=== PATIENT | male | born 1975 | race Caucasian/White ===

== ENCOUNTER 2022-10-04 15:43 | Inpatient (IN) | payer OTHER ==
[~2022-10-04] VITALS: Ht 188 cm; Wt 74.8 kg
[~2022-10-04 15:43] MED LIST: ACET-2619 PO; ACET-5629 PO; APIX5TAB PO; CLOZ100T PO; DIVA125E11 PO; DOCU50LI8 GT; DOXY-690 PO; IBUP-2213 PO; LACT-103 PO; LID5T TP; PANT40EC PO; PAX10 PO; POLY17PD65 PO
[2022-10-04 20:10] VITALS: PULSE 55
--- NOTE | 2022-10-04 20:10 | NUR ---
PT WAS DIRECT ADMITTED FROM [facility] WITH DIAGNOSIS OF ESOPHAGEAL PERFURATION. PT IS AOX2-3, BEDREST, ABLE TO VERBALIZE NEEDS AND ABLE TO FOLLOW COMMANDS. PT IS IN TPN AND ON 4L NC. PT HAS G-TUBE AND HAS IV ON RIGHT UPPER ARM 3X LUMEN, SALINE LOCK AND RIGHT HAND GAUGE 20, SALINE LOCK. PT HAS WOUND ON LEFT LOWER LEG AND ULCER ON SACRAL. PT WAS ORIENTED TO ROOM/HOSPITAL, BEDBUTTONS AND CALL LIGHT. ALL SAFETY MEASURES IMPLEMENTED, BED IN LOW POSITION, BED WHEELS ON LOCK AND CALL LIGHT WITHIN REACH.
--- NOTE | 2022-10-04 21:00 | NUR ---
PAGED DR. CAT REGARDING DIRECT ADMIT PT. WILL WAIT FOR DOCTOR'S CALL AND ORDER.
--- NOTE | 2022-10-04 22:36 | NUR ---
Texted Dr Choudhary for admission order because [facility] charge has not received the call back from Dr Choudhary for the admission order
--- NOTE | 2022-10-04 23:00 | NUR ---
RECEIVED CALL FROM DR. CAT. DOCTOR ORDER TO CONTINUE ALL THE MEDICATION EXCEPT CHLORHEXIDINE AND HE ORDER D5NS AT 50ML/HR DUE TO NO AVAILABILITY OF TPN. ALL SAFETY MEASURES IMPLEMENTED, BED IN LOW POSITION, BED WHEELS ON LOCK AND CALL LIGHT WITHIN REACH.
[2022-10-04] MEDS ORDERED: MAG SULF 2000 MG/WATER PREMIX 50 ML IV PRN (23:10)
[2022-10-04] MEDS ORDERED: KCL 20 MEQ IN 100 mL PREMIX 200 ML IV PRN (23:10)
[2022-10-04] MEDS: DEXT 5% /NACL 0.9% 1,000 ML IV SCH (23:58)
[2022-10-04] MEDS: ONDANSETRON 4 MG/2 ML VIAL IVP PRN (23:59)
[2022-10-04] MEDS: MORPHINE SULFATE 4 MG/ML SYR IVP PRN (23:59)
[2022-10-05] VITALS (12 sets, daily range): BP systolic 114–133; BP diastolic 60–78; PULSE 48–69; RESP 18; TEMP 98–98.2; O2SAT 98–100
[2022-10-05] MEDS ORDERED: ACETAMINOPHEN 100 ML IV PRN (00:15)
[2022-10-05] MEDS ORDERED: phenoL 1.4% SPRAY 20 ML BTL MM PRN (00:15)
[2022-10-05] MEDS ORDERED: LIDOCAINE 5% 1 EA PATCH TP SCH (00:15)
[2022-10-05] MEDS ORDERED: METOCLOPRAMIDE 10 MG/2 ML INJ VIAL IVP PRN (00:15)
[2022-10-05] MEDS ORDERED: oxyCODONE 5 MG TAB PO PRN (00:15)
[2022-10-05] MEDS ORDERED: DEXTROSE 50% 50 ML SYR IVP PRN (00:15)
[2022-10-05] MEDS ORDERED: GLUCAGON 1 MG VIAL IM PRN (00:15)
[2022-10-05] MEDS ORDERED: METOCLOPRAMIDE 10 MG TAB GT PRN (00:15)
--- NOTE | 2022-10-05 02:00 | NUR ---
PT IS ON SLEEP. CHEST RISE AND FALL SYMMETRICALLY NOTED. RESPIRATION IS EVEN AND UNLABORED. ALL SAFETY MEASURES IMPLEMENTED, BED IN LOW POSITION, BED WHEELS ON LOCK AND CALL LIGHT WITHIN REACH.
--- NOTE | 2022-10-05 04:00 | NUR ---
MORNING CARE WAS DONE TO PT. CHANGED CHUCKS, GOWN, LINENS AND BLANKET. ALL SAFETY MEASURES IMPLEMENTED, BED IN LOW POSITION, BED WHEELS ON LOCK AND CALL LIGHT WITHIN REACH.
[2022-10-05 07:29] LABS: BASOPHILS # (AUTO) 0.1 K/uL (0.00-0.22); BASOPHILS % (AUTO) 1.6 % (0.0-2.0); EOSINOPHILS # (AUTO) 0.4 K/uL (0-0.4); EOSINOPHILS % (AUTO) 5.2 % (0.0-4.0); HEMATOCRIT 27.8 % (36-52); LYMPHOCYTES # (AUTO) 1.3 K/uL (2.0-11.5); LYMPHOCYTES % (AUTO) 17.6 % (20.5-51.1); MEAN CORPUSCULAR HEMOGLOBIN 27 pg (27-31); MEAN CORPUSCULAR HGB CONC 33 g/dL (33-37); MEAN CORPUSCULAR VOLUME 82.6 fL (80-94); MONOCYTES # (AUTO) 0.9 K/uL (0.8-1.0); MONOCYTES % (AUTO) 12.3 % (1.7-9.3); NEUTROPHILS # (AUTO) 4.6 K/uL (1.8-7.7); NEUTROPHILS % (AUTO) 63.3 % (42.2-75.2); RED BLOOD CELL COUNT(AUTO) 3.36 MIL/uL (4.20-6.10); RED CELL DISTRIBUTION WIDTH 17.3 % (11.6-13.7); WHITE BLOOD COUNT (AUTO) 7.2 K/uL (4.8-10.8)
--- NOTE | 2022-10-05 07:35 | NUR ---
RECEIVED PT FROM HOSPITAL FELLOW FOR CONTINUITY OF CARE. ALERT AND ORIENTED X3. RESP. EVEN AND UNLABORED. ON CONTINUOUS O2 @ 4L/NC. G-TUBE INTACT. IVF INFUSING WELL. NO C/O PAIN OR DISCOMFORT. CALL LIGHT KEPT WITHIN REACH. WILL CONTINUE TO MONITOR.
--- NOTE | 2022-10-05 07:40 | NUR ---
PT IS STABLE. ENDORSED PT TO MORNING SHIFT NURSE FOR CONTINUITY OF CARE.
[2022-10-05 07:45] LABS: ANION GAP 6.3 (8-16); CARBON DIOXIDE 32.3 mmol/L (21-32); CREATININE 0.6 mg/dL (0.6-1.3); POTASSIUM 3.6 mmol/L (3.5-5.1)
--- NOTE | 2022-10-05 07:52 | NUR ---
ROUNDED ON PT AND FOUND HE IS ON 4L NC TALKED TO NOC RN SHE STATED PT CAME IN ON 4L NC. I TOLD HER 4L NC WAS NOT INDICATED AND I TITRATED TO 2L NC. DAY SHIFT RN SHANTA IS AWARE OF CHANGES. HIS SATURATION IS 99% ON 2L NC. WILL CONTINUE TO MONITOR. PT SHOWS NO SIGNS OF RESP DISTRESS. CALL LIGHT IS WITH IN REACH.
[2022-10-05 08:07] LABS: PLATELET COUNT (AUTO) 541 K/uL (140-450)
[2022-10-05] MEDS ORDERED: MUPIROCIN 2% OINT 22 GM TUBE TP SCH (09:00)
[2022-10-05] MEDS ORDERED: ENOXAPARIN 80 MG/0.8 ML SYR SUBQ SCH ×2 (09:00→21:00)
[2022-10-05] MEDS: SUCRALFATE 1 GM TAB GT SCH ×4 (11:01→20:42)
[2022-10-05] MEDS: HALOPERIDOL 5 MG TAB GT SCH ×2 (11:01→18:08)
[2022-10-05] MEDS: FINASTERIDE 5 MG TAB GT SCH (11:01)
--- NOTE | 2022-10-05 11:01 | NUR ---
RESIDUAL CHECKED. NO RESIDUAL NOTED. SCHEDULED MEDICATIONS GIVEN VIA G-TUBE. TOLERATED WELL.
[2022-10-05] MEDS: PANTOPRAZOLE 40 MG INJ VIAL IVP SCH ×2 (11:04→20:44)
[2022-10-05] MEDS: THIAMINE 200 MG/2 ML VIAL IV SCH ×2 (11:05→20:43)
[2022-10-05] MEDS: MICAFUNGIN SODIUM 100 MG in NACL 0.9% 100 ML IV SCH (11:06)
[2022-10-05] MEDS: MORPHINE SULFATE 4 MG/ML SYR IVP PRN ×2 (11:19→19:11)
[2022-10-05] MEDS: DEXT 5% /NACL 0.9% 1,000 ML IV SCH (11:40)
[2022-10-05 12:10] LABS: ALBUMIN 1.8 g/dL (3.4-5.0); BILIRUBIN,DIRECT 0.1 mg/dL (0.0-0.3); MAGNESIUM 2.1 mg/dL (1.8-2.4); PHOSPHORUS 3.7 mg/dL (2.5-4.9); TOTAL BILIRUBIN 0.2 mg/dL (0.0-1.0)
[2022-10-05] MEDS: ALBUTEROL 0.083% 2.5 MG/3 ML NEBU INH SCH ×2 (13:00→19:00)
--- NOTE | 2022-10-05 13:33 | NUR ---
INFORMED BY LUCY GASTON, THAT OXYGEN WAS INCREASED TO 3L/NC. PT SATTING 91% ON 2L/NC. DR. CAT NOTIFIED, NO NEW ORDER.
[2022-10-05] MEDS ORDERED: INSULIN LISPRO SLIDING SCALE 100 UNITS/ML VIAL SUBQ PRN (14:40)
--- NOTE | 2022-10-05 14:48 | NUR ---
RECEIVED CALLED FROM PHARMACY SPOKE TO MEDIA, CLARIFIED ORDERS REGARDING PHENOL SPRAY AND PRN OXYCODONE. PER DR. CAT KEEP ORDERS.
--- NOTE | 2022-10-05 15:57 | NUR ---
PT WAS SEEN FOR DYSPHAGIA. PT WAS ABLE TO SAFELY SWALLOW PUREE DIET WITH NECTAR THICK LIQUID. MILD COUGH FOR THIN LIQUID. RECOMMENDATION PUREE DIET WITH NECTAR THICK LIQUID
--- NOTE | 2022-10-05 16:22 | NUR ---
SEEN BY ST, RECOMMENDS PUREE DIET, NECTAR THICK LIQUID. DR. CAT NOTIFIED AND STATED KEEP PT NPO.
[2022-10-05] MEDS: BLOOD GLUCOSE MONITORING 1 DEV DEV MC SCH (18:07)
--- NOTE | 2022-10-05 18:07 | NUR ---
BS CHECKED 80. NO COVERAGE NEEDED. RESIDUAL CHECKED. NO RESIDUAL NOTED. SCHEDULED MEDICATIONS GIVEN VIA G-TUBE. TOLERATED WELL.
--- NOTE | 2022-10-05 19:00 | NUR ---
BEDSIDE REPORT GIVEN TO COOLER WORKER FOR CONTINUITY OF CARE.
--- NOTE | 2022-10-05 19:01 | NUR ---
RECEIVED PT FROM MORNING SHIFT NURSE. PT IS AOX2-3, BEDREST, ABLE TO VERBALIZE NEEDS AND ABLE TO FOLLOW COMMANDS. PT IS 3L NC AND ON NPO DIET. PT HAS RIGHT UPPER ARM 3X LUMEN PICC LINE RUNNING WITH D5 1/2 NS AT 80ML/HR AND HAS RIGHT HAND GAUGE 20, SALINE. PT HAS PEG TUBE AND HAS ULCER ON SACRAL AND WOUND ON LEFT LOWER LEG WOUND. NO COMPLAIN OF PAIN AT THIS TIME. NO S/S OF RESPIRATORY DISTRESS NOTED. ALL SAFETY MEASURES IMPLEMENTED. BED IN LOW POSITION, BED WHEELS ON LOCK AND CA;; LIGHT WITHIN REACH.
[2022-10-05] MEDS: TPN PER PHARMACY MC SCH (20:00)
[2022-10-05] MEDS: [UNRECOGNIZED DRUG - OTHER] IV SCH ×4 (20:38)
[2022-10-05] MEDS: AMINO ACIDS IV SCH ×4 (20:38)
[2022-10-05] MEDS: MULTIVITAMIN IV SCH ×4 (20:38)
[2022-10-05] MEDS: DEXTROSE IV SCH ×4 (20:38)
[2022-10-05] MEDS: MUPIROCIN CA NASAL 2% 1GM TUBE NS SCH (20:42)
[2022-10-05] MEDS: SENNA 8.6 MG TAB GT SCH (20:42)
[2022-10-05] MEDS: VALPROIC ACID 250 MG/5 ML UDC GT SCH (20:44)
--- NOTE | 2022-10-05 20:44 | NUR ---
ALL SCHEDULED AND PRESCRIBED MEDICATION WAS GIVEN TO PT PER MD ORDER. ALL SAFETY MEASURES IMPLEMENTED. BED IN LOW POSITION, BED WHEELS ON LOCK AND CALL LIGHT WITHIN REACH.
[2022-10-05] MEDS ORDERED: VALPROIC ACID 250 MG/5 ML UDC GT SCH ×2 (21:00)
--- NOTE | 2022-10-05 22:00 | NUR ---
PT WAS GIVEN WARM BLANKET PER PT REQUEST. NO COMPLAIN OF PAIN AT THIS TIME. NO S/S OF RESPIRATORY DISTRESS NOTED. ALL SAFETY MEASURES IMPLEMENTED. BED IN LOW POSITION, BED WHEELS ON LOCK AND CALL LIGHT WITHIN REACH.
[2022-10-06] VITALS (9 sets, daily range): BP systolic 98–133; BP diastolic 52–85; PULSE 46–66; RESP 17–19; TEMP 97–98.9; O2SAT 96–100
[2022-10-06] MEDS: ONDANSETRON 4 MG/2 ML VIAL IVP PRN (00:16)
[2022-10-06] MEDS: MORPHINE SULFATE 4 MG/ML SYR IVP PRN ×3 (00:17→15:20)
[2022-10-06] MEDS: BLOOD GLUCOSE MONITORING 1 DEV DEV MC SCH ×4 (00:23→17:52)
[2022-10-06] MEDS ORDERED: LIDOCAINE 5% 1 EA PATCH TP SCH (00:50)
--- NOTE | 2022-10-06 00:50 | NUR ---
ALL SCHEDULED AND PRESCRIBED MEDICATION WAS GIVEN TO PT PER MD ORDER. LIDOCAINE PATCH WAS ATTACHED TO RIGHT LOWER BACK. PT WAS ALSO GIVEN MORPHINE WITH ZOFRAN DUE TO BACK PAIN WITH PAIN SCALE OF 10/10. PT BLOOD GLUCOSE IS 100. NO INSULIN COVERAGE NEEDED. ALL SAFETY MEASURES IMPLEMENTED. BED IN LOW POSITION, BED WHEELS ON LOCK AND CALL LIGHT WITHIN REACH.
[2022-10-06] MEDS: ALBUTEROL 0.083% 2.5 MG/3 ML NEBU INH SCH ×4 (01:00→19:07)
--- NOTE | 2022-10-06 02:00 | NUR ---
PT IS ON SLEEP. CHEST RISE AND FALL SYMMETRICALLY NOTED. RESPIRATION IS EVEN AND UNLABORED. ALL SAFETY MEASURES IMPLEMENTED. BED IN LOW POSITION, BED WHEELS ON LOCK AND CALL LIGHT WITHIN REACH.
--- NOTE | 2022-10-06 04:00 | NUR ---
MORNING CARE WAS DONE TO PT. CHANGED GOWN, DIAPER, LINENS AND BLANKET. ALL SAFETY MEASURES IMPLEMENTED. BED IN LOW POSITION, BED WHEELS ON LOCK, ANG CALL LIGHT WITHIN REACH.
[2022-10-06] MEDS ORDERED: MEROPENEM 1,000 MG VIAL IV ONE (04:30)
[2022-10-06] MEDS: MEROPENEM 1,000 MG in NACL 0.9% 50 ML IV SCH ×3 (04:42→21:24)
--- NOTE | 2022-10-06 04:42 | NUR ---
SCHEDULED AND PRESCRIBED MEDICATION WAS GIVEN TO PT PER MD ORDER. ALL SAFETY MEASURES IMPLEMENTED. BED IN LOW POSITION, BED WHEELS ON LOCK, ANG CALL LIGHT WITHIN REACH.
[2022-10-06 05:19] LABS: BASOPHILS # (AUTO) 0.1 K/uL (0.00-0.22); BASOPHILS % (AUTO) 1.6 % (0.0-2.0); EOSINOPHILS # (AUTO) 0.4 K/uL (0-0.4); EOSINOPHILS % (AUTO) 6.1 % (0.0-4.0); HEMATOCRIT 26.1 % (36-52); HEMOGLOBIN 8.6 g/dL (12.0-18.0); LYMPHOCYTES # (AUTO) 1.3 K/uL (2.0-11.5); LYMPHOCYTES % (AUTO) 19.4 % (20.5-51.1); MEAN CORPUSCULAR HEMOGLOBIN 27 pg (27-31); MEAN CORPUSCULAR HGB CONC 33 g/dL (33-37); MEAN CORPUSCULAR VOLUME 82.2 fL (80-94); MONOCYTES # (AUTO) 0.9 K/uL (0.8-1.0); MONOCYTES % (AUTO) 13.2 % (1.7-9.3); NEUTROPHILS % (AUTO) 59.7 % (42.2-75.2); PLATELET COUNT (AUTO) 474 K/uL (140-450); RED BLOOD CELL COUNT(AUTO) 3.18 MIL/uL (4.20-6.10); RED CELL DISTRIBUTION WIDTH 17.7 % (11.6-13.7); WHITE BLOOD COUNT (AUTO) 6.7 K/uL (4.8-10.8)
[2022-10-06 05:35] LABS: ANION GAP 4.5 (8-16); CREATININE 0.5 mg/dL (0.6-1.3); POTASSIUM 3.5 mmol/L (3.5-5.1)
--- NOTE | 2022-10-06 05:47 | NUR ---
PT BLOOD GLUCOSE IS 107. NO INSULIN COVERAGE NEEDED.
--- NOTE | 2022-10-06 07:33 | NUR ---
PT IS STABLE. ENDORSED PT TO MORNING SHIFT NURSE FOR CONTINUITY OF CARE.
--- NOTE | 2022-10-06 07:34 | NUR ---
RECEIVED PT FROM ABLE BODIED WATCHMAN NURSE FOR CONTINUITY OF CARE. PT IS AWAKE, AOX3 SPEECH DELAY. ABLE TO VERBALIZE NEEDS. RESPIRATIONS EVEN AND UNLABORED ON 3L NC. PEG TUBE INTACT. IVF INFUSING WELL. CALL LIGHT WITHIN REACH. ALL SAFETY PRECAUTIONS IN PLACE.
--- NOTE | 2022-10-06 08:00 | NUR ---
Patient's Plan of Care was discussed and reviewed with CLINICAL MOLECULAR GENETICIST: JERRY
[2022-10-06] MEDS: VALPROIC ACID 250 MG/5 ML UDC GT SCH ×2 (09:32→21:17)
[2022-10-06] MEDS: MUPIROCIN CA NASAL 2% 1GM TUBE NS SCH ×2 (09:33→21:24)
[2022-10-06] MEDS: SUCRALFATE 1 GM TAB GT SCH ×4 (09:33→21:19)
[2022-10-06] MEDS: HALOPERIDOL 5 MG TAB GT SCH ×2 (09:33→17:26)
[2022-10-06] MEDS: FINASTERIDE 5 MG TAB GT SCH (09:34)
[2022-10-06] MEDS: ENOXAPARIN 40 MG/0.4 ML SYR SUBQ SCH (09:42)
[2022-10-06] MEDS: MICAFUNGIN SODIUM 100 MG in NACL 0.9% 100 ML IV SCH (10:34)
[2022-10-06] MEDS: PANTOPRAZOLE 40 MG INJ VIAL IVP SCH ×2 (10:34→21:19)
[2022-10-06] MEDS: THIAMINE 200 MG/2 ML VIAL IV SCH ×2 (10:34→21:24)
--- NOTE | 2022-10-06 11:34 | NUR ---
PATIENT HAS BEEN SCREENED AND CATEGORIZED HIGH NUTRITION RISK. PATIENT WILL BE SEEN WITHIN 1-2 DAYS OF ADMISSION. 10/04/22-10/06/[address] FNS CONSULT RECEIVED FOR WOUNDS/PRESSURE INJURY
--- NOTE | 2022-10-06 16:53 | NUR ---
10/06/22 RD INITIAL ASSESSMENT COMPLETED. PLEASE REFER TO NUTRITION ASSESSMENT UNDER CARE ACTIVITY FOR ESTIMATED NUTRITIONAL NEEDS. 1. CONTINUE TPN PER MD. 2. WHEN/IF MEDICALLY APPROPRIATE, RECOMMEND MAISHA BID (160 KCAL, 5 GRAMS PROTEIN) TO PROMOTE WOUND HEALING. 3. MONITOR GI SYMPTOMS AND WEIGHT. CONSULT RD PRN 4. RD TO FOLLOW-UP 2-3 DAYS, HIGH RISK RADHA MARK RD
--- NOTE | 2022-10-06 19:29 | NUR ---
ENDORSED PT TO BASEBALL GLOVE STUFFER NURSE FOR CONTINUITY OF CARE. PT IS STABLE.
--- NOTE | 2022-10-06 19:30 | NUR ---
RECEIVED PT FROM MORNING SHIFT NURSE FOR CONTINUITY OF CARE. PT IS AOX4, BEDREST, ABLE TO VERBALIZE NEEDS AND ABLE TO FOLLOW COMMANDS. PT IS 3L 02 VIA NC. PT HAS RIGHT UPPER ARM 3X LUMEN PICC LINE RUNNING TPN @ 60ML/HR AND HAS RIGHT HAND GAUGE 20, SALINE. PT HAS PEG TUBE AND HAS ULCER ON SACRAL AND WOUND ON LEFT LOWER LEG WOUND. NO COMPLAIN OF PAIN AT THIS TIME. NO S/SX OF RESPIRATORY DISTRESS NOTED. ALL SAFETY MEASURES IN PLACE. CALL LIGHT WITHIN REACH. WILL CONTINUE TO MONITOR.
[2022-10-06] MEDS: TPN PER PHARMACY MC SCH (20:00)
[2022-10-06] MEDS: [UNRECOGNIZED DRUG - OTHER] IV SCH ×4 (20:20)
[2022-10-06] MEDS: DEXTROSE IV SCH ×4 (20:20)
[2022-10-06] MEDS: AMINO ACIDS IV SCH ×4 (20:20)
[2022-10-06] MEDS: MULTIVITAMIN IV SCH ×4 (20:20)
[2022-10-06] MEDS: SENNA 8.6 MG TAB GT SCH (21:18)
--- NOTE | 2022-10-06 22:23 | NUR ---
PT ON ROOM AIR SATING 96%.
[2022-10-07] VITALS (11 sets, daily range): BP systolic 108–131; BP diastolic 51–79; PULSE 45–73; RESP 16–19; TEMP 97.1–98.1; O2SAT 88–100
[2022-10-07] MEDS: BLOOD GLUCOSE MONITORING 1 DEV DEV MC SCH ×4 (00:29→17:44)
[2022-10-07] MEDS: ALBUTEROL 0.083% 2.5 MG/3 ML NEBU INH SCH ×4 (02:18→19:29)
--- NOTE | 2022-10-07 02:25 | NUR ---
DURING ROUNDS PT WAS FOUND ON RA W/ SPO2 @ 88%. ADMINISTERED HHN TX W/O INCIDENT AND PLACED PT BACK ON 2 LPM N/C CURRENT SPO2 @ 92% AND RISING. NO SIGNS OF RESPIRATORY DISTRESS NOTED AT THIS TIME.
--- NOTE | 2022-10-07 03:01 | NUR ---
PT ASLEEP. NO S/SX OF DISTRESS NOTED. ALL PRECAUTIONS IN PLACE. CALL LIGHT WITHIN REACH. WILL CONTINUE TO MONITOR.
[2022-10-07] MEDS: MEROPENEM 1,000 MG in NACL 0.9% 50 ML IV SCH ×3 (05:49→20:51)
--- NOTE | 2022-10-07 06:00 | NUR ---
SCHEDULED MEDICATIONS GIVEN.AM CARE DONE. WOUND DRESSINGS CHANGED. BLOOD SUGAR WAS 106. WILL CONTINUE TO MONITOR.
[2022-10-07 06:08] LABS: BASOPHILS # (AUTO) 0.1 K/uL (0.00-0.22); BASOPHILS % (AUTO) 0.7 % (0.0-2.0); EOSINOPHILS # (AUTO) 0.4 K/uL (0-0.4); EOSINOPHILS % (AUTO) 4.4 % (0.0-4.0); HEMATOCRIT 29.5 % (36-52); HEMOGLOBIN 9.6 g/dL (12.0-18.0); LYMPHOCYTES # (AUTO) 1.1 K/uL (2.0-11.5); LYMPHOCYTES % (AUTO) 12.8 % (20.5-51.1); MEAN CORPUSCULAR HEMOGLOBIN 27 pg (27-31); MEAN CORPUSCULAR HGB CONC 33 g/dL (33-37); MEAN CORPUSCULAR VOLUME 82.1 fL (80-94); MONOCYTES # (AUTO) 0.9 K/uL (0.8-1.0); MONOCYTES % (AUTO) 10.3 % (1.7-9.3); NEUTROPHILS # (AUTO) 6.2 K/uL (1.8-7.7); NEUTROPHILS % (AUTO) 71.8 % (42.2-75.2); PLATELET COUNT (AUTO) 538 K/uL (140-450); RED BLOOD CELL COUNT(AUTO) 3.59 MIL/uL (4.20-6.10); RED CELL DISTRIBUTION WIDTH 18.2 % (11.6-13.7); WHITE BLOOD COUNT (AUTO) 8.6 K/uL (4.8-10.8)
[2022-10-07 06:29] LABS: ANION GAP 8.1 (8-16); CARBON DIOXIDE 32.4 mmol/L (21-32); CREATININE 0.6 mg/dL (0.6-1.3); POTASSIUM 3.5 mmol/L (3.5-5.1)
--- NOTE | 2022-10-07 06:32 | NUR ---
PT IS STABLE. NO ACUTE EVENTS THROUGHOUT THE NIGHT. ALL NEEDS MET.NO S/SX OF DISTRESS. NO COMPLAINS OF PAIN AT THIS MOMENT. ALL PRECAUTIONS IN PLACE. CALL LIGHT WITHIN REACH. WILL ENDORSE TO DAY SHIFT NURSE.
[2022-10-07 06:40] LABS: MAGNESIUM 1.7 mg/dL (1.8-2.4); PHOSPHORUS 2.8 mg/dL (2.5-4.9)
--- NOTE | 2022-10-07 07:55 | NUR ---
RECEIVED PATIENT FROM PM NURSE FOR CONTINUITY OF CARE. PATIENT SEEN ON BED AWAKE. NORMAL RISE AND FALL OF CHEST OBSERVED. PATIENT VITALS STABLE WITHIN NORMAL LIMITS. PATIENT CARE RESUMED.
--- NOTE | 2022-10-07 08:55 | NUR ---
WOUND CARE NOTE: PT ADMITTED WITH DIAGNOSIS OF ESOPHAGEAL PERFORATION RETURN BACK FROM [facility] FOR CONTINUE CARES. PT ADMITTED WITH COCCYX PRESSURE INJURY UN-STAGEABLE AND LLE ABRASION. PT. WITH LOW VIKA SCALE AT MODERATE TO HIGH RISK, CONTINUE TO FOLLOW PRESSURE INJURY PREVENTION INTERVENTIONS. POC DISCUSSED WITH PRIMARY NURSE KASSIDY RECOMMEND DES CATH FOR MOISTURE CONTROL. -GT JOSHUA-STOMA SKIN DRY AND CLEAN -COCCYX PRESSURE INJURY UN-STAGEABLE 3X2CM 100% YELLOW SLOUGH TISSUE, MOIST, NO ODOR ,JOSHUA-WOUND SKIN DRY AND INTACT. -RIGHT PLANTAR 2X2CM DRY STABLE SCAB -LEFT MEDIAL KNEE 1.5X1.5CM DRY STABLE SCAB -RIGHT LATERAL FOOT 4X0.8CM DRY STABLE SCAB RECOMMENDATIONS: -GT SITE CARE PER PROTOCOL -PAINT SCABS LEFT MEDIAL KNEE, RIGHT LATERAL FOOT, RIGHT PLANTAR WITH BETADINE SWABSTICKS BID AND NAUN -CLEANSE COCCYX WITH WOUND CARE SOLUTION, PAT DRY, APPLY THERAHONEY GEL. COVER WITH DRY DRESSING QD AND PRN IF SOILING -PROTECT SCAPULARS, HIPS, MEDIAL KNEES, BONY PROMINENCES WITH FOAM DRESSING Q3D AND PRN IF SOILING -POSITIONING: TURN AND REPOSITION PATIENT Q 2H OR SOONER USE PILLOWS TO KEEP BONY PROMINENCES FROM DIRECT CONTACT WITH SURFACES USE REPOSITIONING WEDGES TO PROVIDE 30-DEGREE ANGLE FOR SIDE LYING POSITIONS OFFLOADING OR FOAM DRESSING TO ALL TUBING TO PREVENT MEDICAL DEVICES RELATED PRESSURE INJURY -RE-EVALUATING AND MANAGING INCONTINENCE MONITOR SKIN CONDITION DURING POSITION CHANGE DO NOT MASSAGE REDNESS, BONY PROMINENCES FREQUENT JOSHUA-CARE AND PROVIDE BARRIER CREAMS PRN IF SOILING MOISTURE CONTROL BY OFFER BED GUERRA/URINAL /ABSORBENT PAD TO WICK AND HOLD MOISTURE KEEP SKIN DRY AND PROTECT FROM FRICTION -MANAGE FRICTION/SHEAR/MOBILITY KEEP HOB AT THE LOWEST LEVEL OF ELEVATION NO MORE THAN 30 DEGREE UNLESS OTHERWISE CONTRAINDICATED USE LIFT SHEET OR TRANSFER DEVICE TO MOVE PATIENT AND PREVENT LATERAL SHEER. PROTECT HEELS, ELBOWS BONY PROMINENCES WITH SKIN BERRIES OR FOAM DRESSING IF EXPOSED TO FRICTION OFFLOAD BILATERAL HEELS BY PLACING PILLOWS UNDER CALVES AT ALL TIMES, UNLESS OTHERWISE CONTRAINDICATED -PRESSURE REDISTRIBUTION SURFACE THERAPY DENISE ISOFLEX EL MATTRESS -NUTRITION: PLEASE FOLLOW RD RECOMMENDATIONS AND OFFER NUTRITION SUPPLEMENTS IF ORDERED. PLEASE CONTACT WOUND CARE NURSE FOR ANY QUESTION AND CHANGE OF WOUND CONDITION.
[2022-10-07] MEDS: MORPHINE SULFATE 4 MG/ML SYR IVP PRN ×3 (09:37→20:11)
[2022-10-07] MEDS: FINASTERIDE 5 MG TAB GT SCH (09:51)
[2022-10-07] MEDS: HALOPERIDOL 5 MG TAB GT SCH ×2 (09:51→17:26)
[2022-10-07] MEDS: SUCRALFATE 1 GM TAB GT SCH ×4 (09:51→20:53)
[2022-10-07] MEDS: VALPROIC ACID 250 MG/5 ML UDC GT SCH ×2 (09:51→20:53)
[2022-10-07] MEDS: PANTOPRAZOLE 40 MG INJ VIAL IVP SCH ×2 (09:52→20:51)
[2022-10-07] MEDS: MUPIROCIN CA NASAL 2% 1GM TUBE NS SCH ×2 (09:52→20:52)
[2022-10-07] MEDS: LIDOCAINE 5% 1 EA PATCH TP SCH (09:53)
[2022-10-07] MEDS: ENOXAPARIN 40 MG/0.4 ML SYR SUBQ SCH (09:55)
[2022-10-07] MEDS: THIAMINE 200 MG/2 ML VIAL IV SCH ×2 (10:07→20:52)
[2022-10-07] MEDS: MICAFUNGIN SODIUM 100 MG in NACL 0.9% 100 ML IV SCH (10:51)
--- NOTE | 2022-10-07 12:56 | NUR ---
Order Desk Caller BRAND LEADER met with pt. but was unable to complete the Discharge Planning Assessment. BRAND LEADER will call [facility] where pt. came from to collect info.
[2022-10-07] MEDS: GAUZE TP SCH (13:00)
[2022-10-07] MEDS: FOAM DRESSING TP SCH (13:00)
[2022-10-07] MEDS: THERAHONEY GEL 42.5 GM TP SCH (13:00)
--- NOTE | 2022-10-07 13:31 | NUR ---
ROUNDED ON PT SATURATION AT THIS TIME IS 95% ON 2L NC ,BS CLEAR, GOOD CHEST RISE AND FALL. NO SOB NOTED OR RESP DISTRESS. PT TOOK HHN TX WITH NO COMPLICATIONS, PT STATED THAT HE IS IN PAIN AND WOULD LIKE MORPHINE. RT WILL NOTIFY RN. CALL LIGHT WITHIN REACH. WILL CONT TO MONITOR THROUGHOUT SHIFT.
--- NOTE | 2022-10-07 14:40 | NUR ---
DC PLANNING: DC PLANNIN YRS OLD MALE PATIENT WAS ADMITTED FROM [facility] WITH A DX OF ESOPHAGEAL PERFORATION, NSTEMI. PATIENT HAS A HX OF SCHIZOPHRENIA AND ESOPHAGEAL TEAR AND BIPOLAR . CXR SHOWED BILATERAL PLEURAL EFFUSION. PATIENT ON O2 2L/NC SATING 95%. ADMINISTERED IVF, IV ABX MEROPENEM MICAFUNGIN AND ON TPN. CONSULTED WITH ID. DC PLAN TO GO HOME WITH HOME HEALTH VS SNF. CM TO FOLLOW Addendum: 10/08/22 at 0907 by Sakshi Huntley RN DC PLANNING: CM CALLED PT'S PUBLIC GUARDIAN LETICIA KAMRAN [phone] LEFT A MESSAGE. PATIENT PASSED SWALLOWING EVAL , PER DR LLOYD NEEDED TO CONFIRM FOR [facility] RECOMMENDATIONS. SEEN BY ID, CONTINUE IV ABX MEROPENEM, MICAFUNGIN AND TPN. DC PLAN TO GO TO SNF WHEN STABLE CM Addendum: 10/08/22 at 1624 by Sakshi Huntley RN DC PLANNING: CM DISCUSSED THE DC PLAN WITH DR MAJANO, UNABLE TO GET THE PO INTAKE RECOMMENDATION FROM [facility]. DC PLAN TO START G-TUBE FEEDING , STOPPED TPN FOR 24HRS AND WILL DC TP SNF. VISHNU IBARRA FROM [facility] SPOKE WITH PATIENT AND PATIENT AGREED TO GO EITHER ONE. CM TO FOLLOW Addendum: 10/10/22 at 1154 by Sakshi Huntley RN DC PLANING: RECEIVED A CALL FROM [facility] PUBLIC [facility]ARD[facility] OFFICE SPOKE WITH MOLLY ARCHULETA STATED THE COURT HEARING DATE IS ON OCTOBER 11, 2022 AND THE PAPERWORK HAS TO BE SIGNED AND FAXED BACK TO THEM. [facility] CONTACTED ATTENDING PHYSICIAN DR MAJANO SIGNED AND FAXED BACK TO MOLLY AT [phone] PÉREZ WILL ASK DR MORGAN IF HE IS ABLE TO PERFORM THE PROCEDURE FOR G-J CONVERSION FOR GASTRIC VENTING. CM TO FOLLOW Addendum: 10/11/22 at 1038 by Sakshi Huntley RN DC PLANNING: RECEIVED A MESSAGE FROM PUBLIC [facility] AND CORE STACKER LINK [phone] AND [phone] STATED CORE STACKER WANTED TO TALK TO PATIENT. CALLED AND LEFT A MESSAGE FOR BOTH. CM SPOKE WITH PATIENT AND CONFIRMED THAT LINK SPOKE WITH HIM YESTERDAY AFTERNOON 10/10/22 AND NOTIFIED HIM THAT THE COURT HEARING IS ON 10/11/22 .PATIENT VERBALIZED UNDERSTANDING. AWAITING FOR GI TO CONFIRM THE G-J CONVERSION PROCEDURE. CM TO FOLLOW Addendum: 10/14/22 at 1631 by Sakshi Huntley RN DC PLANNING: CALLED [facility] OFFICE SPOKE WITH JUDITH HENDRICKSON FOR [facility] ANDREW STATED THE COURT DATE IS CONTINUED AND SCHEDULED IT Friday10/15/22 HOW EVER IF AGREED WITH LIFE THREATENING CAN DOCUMENT AND PERFORM THE PROCEDURE. CM SPOKE WITH DR DANIEL WILKINSON STATED NO NEED THE G-J CONVERSION PROCEDURE INCREASE THE G-TUBE FEEDING RATE TO 30ML AND THE PLAN IS SLOWLY ADVANCED THE RATE AND DISCONTINUE THE TPN. CM TO FOLLOW Addendum: 10/14/22 at 1634 by Sakshi Huntley RN DC PLANING: PER DR BAIRD REQUESTED EGD RECORD FOR [facility]. CM FAXED THE REQUEST TO [phone] AWAITING FOR THE RESULT. CM TO FOLLOW Addendum: 10/15/22 at 1534 by Sakshi Huntley RN DC PLANNING: RECEIVED A MEDICAL RECORD FROM [facility] , NOTIFIED DR BARKER THE EGD RESULT, PER DR EARL COREAS TPN INCREASED THE G-TUBE FEEDING ADVANCED DIET TO FULL LIQUID AND WILL MONITOR PT. DC PLAN TO DC TO SNF WHEN STABLE. CM TO FOLLOW Addendum: 10/15/22 at 1541 by Sakshi Huntley RN DC PLANNING: CM CALLED [facility] [phone] SPOKE WITH ASIA DISCUSSED THE POSSIBLE DC TOMORROW OR DAY AFTER PER ASIA NO BED AVAILABLE TODAY BUT TO FAX THE PAPERWORK. FAXED THE REQUEST TO [facility], BRIANDA, PRATIBHA YEBOAH, JORGE A MABRY, ARELY RAMÍREZ AND KRISTEL RAMÍREZ. CM TO FOLLOW Addendum: 10/17/22 at 1209 by Sakshi Huntley RN DC PLANNING: STILL AWAITING FOR DR ELLIOTT TO PERFORM EGD. CM CALLED [facility] SPOKE WITH KITTY STATED WILL LOOK FOR A BED AND CALL BACK CM TO FOLLOW Addendum: 10/21/22 at 1106 by Sakshi Huntley RN DC PLANNING: CALLED PATIENT PUBLIC [facility]IAN [phone] LEFT A MESSAGE FOR DAVID ANDREW. KITTY FROM [facility] STATED NO BED AT [facility], [facility] AND [facility]. FAXED TO [facility] BRIANDA SANDERSON AND [facility] M[facility]. CM TO FOLLOW Addendum: 10/21/22 at 1441 by Sakshi Huntley RN DC PLANNING: [facility] ACCEPTED PATIENT CAN GO TO ROOM 51 UNDER THE CARE OF DR CAT.ARRANGED TRANSPORT WITH [facility] PREPARATION SUPERVISOR TIME 6 PM. NOTIFIED NOVA CHARGE NURSE. Addendum: 10/21/22 at 1631 by Sakshi Huntley RN DC PLANNING: CALLED [facility] OFF[facility] [phone] SPOKE WITH NANCIE OFFICER ON DUTY NOTIFIED HER THAT PT'S DISCHARGE LOCATION. PER NANCIE WILL EMAIL HIS PUBLIC GUARDIAN. CM TO FOLLOW
--- NOTE | 2022-10-07 18:30 | NUR ---
CONDOM CATHETER PLACED ON PATIENT TO AVOID MOISTURE TO WOUND IN COCCYX. FOAM GAUZE PLACED ON PATIENT BONY PROMINENCES. PATIENT VITALS STABLE WITHIN PATIENT BASELINE. PATIENT VERBALIZES NO CONCERNS
--- NOTE | 2022-10-07 19:15 | NUR ---
RECEIVED PATIENT AWAKE ALERT VERBALLY RESPONSIVE. ABLE TO COMMUNICATE WITH HIS NEEDS. NO SOB NOTED ON ROOM AIR SATING 100%. IV ACCESS TO RIGHT UPPER ARM PICC LINE [address]HE[address] PL[address]. CALL LIGHT WITHIN REACH. NO COMPLAINTS OF PAIN AT THIS TIME. NEEDS ATTENDED TO.
[2022-10-07] MEDS: TPN PER PHARMACY MC SCH (20:00)
[2022-10-07] MEDS: [UNRECOGNIZED DRUG - OTHER] IV SCH ×4 (20:17)
[2022-10-07] MEDS: AMINO ACIDS IV SCH ×4 (20:17)
[2022-10-07] MEDS: DEXTROSE IV SCH ×4 (20:17)
[2022-10-07] MEDS: MULTIVITAMIN IV SCH ×4 (20:17)
--- NOTE | 2022-10-07 20:51 | NUR ---
ALL 2100 SCHEDULED MEDICATIONS ADMINISTERED ORDERED.
[2022-10-07] MEDS: SENNA 8.6 MG TAB GT SCH (20:53)
--- NOTE | 2022-10-07 21:53 | NUR ---
NO LIDODERM PATCH SEEN, NOTHING TO REMOVE.
[2022-10-08] VITALS (10 sets, daily range): BP systolic 118–126; BP diastolic 68–77; PULSE 51–77; RESP 16–20; TEMP 97.5–98.4; O2SAT 94–100
[2022-10-08] MEDS: ALBUTEROL 0.083% 2.5 MG/3 ML NEBU INH SCH ×5 (01:40→19:36)
[2022-10-08] MEDS: MORPHINE SULFATE 4 MG/ML SYR IVP PRN ×5 (02:16→22:32)
[2022-10-08] MEDS: MEROPENEM 1,000 MG in NACL 0.9% 50 ML IV SCH ×3 (05:09→20:23)
[2022-10-08] MEDS: BLOOD GLUCOSE MONITORING 1 DEV DEV MC SCH ×4 (06:00→18:41)
[2022-10-08 06:57] LABS: BASOPHILS # (AUTO) 0.1 K/uL (0.00-0.22); BASOPHILS % (AUTO) 0.9 % (0.0-2.0); EOSINOPHILS # (AUTO) 0.3 K/uL (0-0.4); EOSINOPHILS % (AUTO) 4.5 % (0.0-4.0); HEMATOCRIT 28.9 % (36-52); HEMOGLOBIN 9.4 g/dL (12.0-18.0); LYMPHOCYTES # (AUTO) 1.1 K/uL (2.0-11.5); MEAN CORPUSCULAR HEMOGLOBIN 27 pg (27-31); MEAN CORPUSCULAR HGB CONC 33 g/dL (33-37); MEAN CORPUSCULAR VOLUME 81.6 fL (80-94); MONOCYTES % (AUTO) 13.4 % (1.7-9.3); NEUTROPHILS # (AUTO) 5.1 K/uL (1.8-7.7); NEUTROPHILS % (AUTO) 66.2 % (42.2-75.2); PLATELET COUNT (AUTO) 534 K/uL (140-450); RED BLOOD CELL COUNT(AUTO) 3.54 MIL/uL (4.20-6.10); RED CELL DISTRIBUTION WIDTH 18.6 % (11.6-13.7); WHITE BLOOD COUNT (AUTO) 7.7 K/uL (4.8-10.8)
[2022-10-08 07:04] LABS: ANION GAP 8.5 (8-16); CARBON DIOXIDE 30.9 mmol/L (21-32); CREATININE 0.6 mg/dL (0.6-1.3); POTASSIUM 3.4 mmol/L (3.5-5.1)
[2022-10-08 08:09] LABS: MAGNESIUM 1.9 mg/dL (1.8-2.4); PHOSPHORUS 3.1 mg/dL (2.5-4.9)
[2022-10-08] MEDS: LIDOCAINE 5% 1 EA PATCH TP SCH (09:00)
[2022-10-08] MEDS: PANTOPRAZOLE 40 MG INJ VIAL IVP SCH ×2 (09:00→20:23)
[2022-10-08] MEDS: THIAMINE 200 MG/2 ML VIAL IV SCH ×2 (09:01→20:24)
[2022-10-08] MEDS: VALPROIC ACID 250 MG/5 ML UDC GT SCH ×2 (09:01→20:24)
[2022-10-08] MEDS: HALOPERIDOL 5 MG TAB GT SCH ×2 (09:01→18:40)
[2022-10-08] MEDS: FINASTERIDE 5 MG TAB GT SCH (09:01)
[2022-10-08] MEDS: SUCRALFATE 1 GM TAB GT SCH ×4 (09:01→20:25)
[2022-10-08] MEDS: MUPIROCIN CA NASAL 2% 1GM TUBE NS SCH ×2 (09:01→20:25)
[2022-10-08] MEDS: ENOXAPARIN 40 MG/0.4 ML SYR SUBQ SCH (09:24)
[2022-10-08] MEDS: MICAFUNGIN SODIUM 100 MG in NACL 0.9% 100 ML IV SCH (10:18)
--- NOTE | 2022-10-08 11:40 | NUR ---
CALLED [facility] [phone] AND LEFT A MESSAGE REGARDING THE RESULTS OF PATIENT SWALLOW EVALUATION FROM NUTRITION
--- NOTE | 2022-10-08 12:24 | NUR ---
Art Gallery Director SHEET MANUFACTURING SUPERVISOR met with pt. at bedside. Pt .was limited in his responses. SHEET MANUFACTURING SUPERVISOR did not want to worry pt. or upset and was able to use the info from the last admittance to complete the discharge planning assessment.
[2022-10-08] MEDS: GAUZE TP SCH (13:00)
[2022-10-08] MEDS: THERAHONEY GEL 42.5 GM TP SCH (13:00)
--- NOTE | 2022-10-08 14:01 | NUR ---
10/08/22 RD FOLLOW UP COMPLETED PLEASE REFER TO NUTRITION ASSESSMENT UNDER CARE ACTIVITY FOR ESTIMATED NUTRITIONAL NEEDS. 1. CONTINUE CURRENT TPN RATE PER PHARMACY. 2. RD WILL CONTINUE TO MONITOR WEIGHTS, TPN RATE, GI ISSUES AND NUTRITION RELATED LAB VALUES. 3. RD TO FOLLOW-UP 2-3 DAYS, HIGH RISK JOSHUA ALCOCER RD
--- NOTE | 2022-10-08 17:07 | NUR ---
P.T. NOTES P.T. EVAL COMPLETED; REFER TO EVAL FOR DETAILS.
--- NOTE | 2022-10-08 19:25 | NUR ---
RECEIVED REPORT FROM DAY NURSE FOR CONTINUITY OF CARE. PATIENT IS AWAKE ON ROOM AIR IN NO ACUTE DISTRESS. TPN RUNNING AT 60 MLS/HR TO RIGHT UPPER ARM TRIPLE LUMEN. CALL LIGHT ON EASY REACH. SAFETY MEASURES IN PLACE.
--- NOTE | 2022-10-08 19:44 | NUR ---
PT REFUSED SCHEDULED HHN TX AND STATED HE WOULD LIKE "TO PASS ON THIS ONE". I ASSURED PT I WILL BE BACK FOR HIS NEXT SCHEDULED TX. PT STATED HE UNDERSTOOD.
[2022-10-08] MEDS: AMINO ACIDS IV SCH ×4 (19:55)
[2022-10-08] MEDS: [UNRECOGNIZED DRUG - OTHER] IV SCH ×4 (19:55)
[2022-10-08] MEDS: DEXTROSE IV SCH ×4 (19:55)
[2022-10-08] MEDS: MULTIVITAMIN IV SCH ×4 (19:55)
[2022-10-08] MEDS: TPN PER PHARMACY MC SCH (20:00)
--- NOTE | 2022-10-08 20:00 | NUR ---
Patient's Plan of Care was discussed and reviewed with PEANUT PICKER: RIN BRAN Addendum: 10/08/22 at 2219 by Renay Barrera RN RN WRONG PATIENT
--- NOTE | 2022-10-08 20:24 | NUR ---
ALL 2100 SCHEDULED MEDICATIONS ADMINISTERED ORDERED.
[2022-10-08] MEDS: SENNA 8.6 MG TAB GT SCH (20:25)
[2022-10-09] VITALS (14 sets, daily range): BP systolic 115–127; BP diastolic 66–74; PULSE 50–77; RESP 16–20; TEMP 97.8–99.2; O2SAT 93–98
[2022-10-09] MEDS: ALBUTEROL 0.083% 2.5 MG/3 ML NEBU INH SCH ×4 (01:44→19:09)
[2022-10-09] MEDS: MORPHINE SULFATE 4 MG/ML SYR IVP PRN ×5 (03:31→20:11)
[2022-10-09] MEDS: MEROPENEM 1,000 MG in NACL 0.9% 50 ML IV SCH ×3 (04:39→20:20)
--- NOTE | 2022-10-09 05:51 | NUR ---
PATIENT IS SLEEPING, BREATHING NORMAL WITH SYMMETRICAL RISE AND FALL OF THE CHEST. ALL NEEDS ARE MET THROUGH OUT THE SHIFT. WILL ENDORSED PATIENT TO AM SHIFT FOR CONTINUITY OF CARE. PATIENT STABLE.
[2022-10-09 06:01] LABS: BASOPHILS # (AUTO) 0.1 K/uL (0.00-0.22); BASOPHILS % (AUTO) 1.1 % (0.0-2.0); EOSINOPHILS # (AUTO) 0.3 K/uL (0-0.4); EOSINOPHILS % (AUTO) 5.5 % (0.0-4.0); HEMATOCRIT 26.9 % (36-52); HEMOGLOBIN 8.8 g/dL (12.0-18.0); LYMPHOCYTES # (AUTO) 1.1 K/uL (2.0-11.5); LYMPHOCYTES % (AUTO) 18.1 % (20.5-51.1); MEAN CORPUSCULAR HEMOGLOBIN 27 pg (27-31); MEAN CORPUSCULAR HGB CONC 33 g/dL (33-37); MEAN CORPUSCULAR VOLUME 81.8 fL (80-94); MONOCYTES % (AUTO) 16.5 % (1.7-9.3); NEUTROPHILS # (AUTO) 3.6 K/uL (1.8-7.7); NEUTROPHILS % (AUTO) 58.8 % (42.2-75.2); PLATELET COUNT (AUTO) 422 K/uL (140-450); RED BLOOD CELL COUNT(AUTO) 3.29 MIL/uL (4.20-6.10); RED CELL DISTRIBUTION WIDTH 18.9 % (11.6-13.7); WHITE BLOOD COUNT (AUTO) 6.1 K/uL (4.8-10.8)
[2022-10-09] MEDS: BLOOD GLUCOSE MONITORING 1 DEV DEV MC SCH ×4 (06:03→15:52)
[2022-10-09 06:41] LABS: ANION GAP 9.2 (8-16); CARBON DIOXIDE 29.3 mmol/L (21-32); CREATININE 0.5 mg/dL (0.6-1.3); POTASSIUM 3.5 mmol/L (3.5-5.1)
--- NOTE | 2022-10-09 08:06 | NUR ---
PATIENT RECEIVED FROM SUBSTATION DESIGN DRAFTSPERSON A/OX4 , VSS , PATIENT AWAKE , COMPLAIN OF RIGHT CHEST PAIN 12/01, MORPHINE 4MG IV PUSH GIVEN ,NO SOB , NPO , ON IV FLUID ,STILL UNDER OBSERVE .
[2022-10-09] MEDS: ENOXAPARIN 40 MG/0.4 ML SYR SUBQ SCH (08:50)
[2022-10-09] MEDS: PANTOPRAZOLE 40 MG INJ VIAL IVP SCH ×2 (08:52→20:11)
[2022-10-09] MEDS: LIDOCAINE 5% 1 EA PATCH TP SCH (08:52)
[2022-10-09] MEDS: VALPROIC ACID 250 MG/5 ML UDC GT SCH ×2 (08:53→20:12)
[2022-10-09] MEDS: SUCRALFATE 1 GM TAB GT SCH ×4 (08:53→20:20)
[2022-10-09] MEDS: MUPIROCIN CA NASAL 2% 1GM TUBE NS SCH ×2 (08:53→20:45)
[2022-10-09] MEDS: FINASTERIDE 5 MG TAB GT SCH (08:54)
[2022-10-09] MEDS: HALOPERIDOL 5 MG TAB GT SCH ×2 (08:54→16:02)
[2022-10-09] MEDS: THIAMINE 200 MG/2 ML VIAL IV SCH ×2 (08:55→20:19)
[2022-10-09] MEDS: MICAFUNGIN SODIUM 100 MG in NACL 0.9% 100 ML IV SCH (09:14)
--- NOTE | 2022-10-09 09:19 | NUR ---
3 RNs BERTHA RAYMOND AND MYSELF IDENTIFY PRESSURE INJURY LOCATION IS AT SACRALCOCCYX NOT BUTTOCKS. POC DISCUSSES WITH PRIMARY RNS AND CONTINUE INTERVENTIONS FOR WOUND/SKIN CARE.
--- NOTE | 2022-10-09 09:20 | NUR ---
PATIENT RECEIVED AT BED SIDE , A/OX3 , VSS , ON ROOM AIR , COMPLAIN OF PAIN EARLIER MORPHINE GIVEN , ON TPN FOR FEEDING , HAS GASTRIC TUB FOR MEDS , SKIN SEE SKIN ASSESSMENT NPO , STILL UNDER OBSERVE .
[2022-10-09] MEDS: GAUZE TP SCH (12:19)
[2022-10-09] MEDS: THERAHONEY GEL 42.5 GM TP SCH (12:20)
--- NOTE | 2022-10-09 13:24 | NUR ---
PATIENT IN BED REST , VSS , NO COMPLAIN AT THIS TIME , STILL UNDER OBSERVE
--- NOTE | 2022-10-09 16:19 | NUR ---
PATIENT ON BED REST , VSS , MED SURGE PATIENT ON TPN FOR FEEDING , ON GASTRIC TUBE FEEDING FOR MEDS SKIN NOT INTACT HE HAS SACRAL WOUND ,
--- NOTE | 2022-10-09 16:21 | NUR ---
PATIENT A/OX3 , VSS , MED SURGE PATIENT , ON TPN IV , HE HAS GASTRIC TUBE FEEDING CLAMP FOR MEDS JUST BED REST , PT HAS SACRAL WOUND , DRESSING DONE , CONTINENT , NO BOWEL MOVEMENT , ON CONTACT ISOLATION STILL NPO DUO TO ESOPHAGEAL PERFORATION , ALL THE TIME COMPLAIN OF RIGHT CHEST PAIN , MEDS GIVEN PATIENT STILL UNDER OBSERVE .
--- NOTE | 2022-10-09 19:10 | NUR ---
shift6 report given to night nurse guzman dhillon , all her question answered .
[2022-10-09] MEDS: SENNA 8.6 MG TAB GT SCH (20:13)
[2022-10-09] MEDS: AMINO ACIDS IV SCH ×4 (20:33)
[2022-10-09] MEDS: MULTIVITAMIN IV SCH ×4 (20:33)
[2022-10-09] MEDS: [UNRECOGNIZED DRUG - OTHER] IV SCH ×4 (20:33)
[2022-10-09] MEDS: DEXTROSE IV SCH ×4 (20:33)
[2022-10-09] MEDS: TPN PER PHARMACY MC SCH (20:33)
--- NOTE | 2022-10-09 23:55 | NUR ---
RECEIVED PT ENDORSEMENT FROM BRITTNI GOMEZ NURSE. PT IS ON BED, AWAKE AND ALERT. PT ABLE TO VERBALIZE NEEDS. PT HAS PICC LINE OF 3 LUMENS. PT IS NPO AND WITH TPN INFUSING WELL AT 60 ML/HR. PT IS ON ROOM AIR. PT IS USING URINAL.
[2022-10-10] MEDS: MORPHINE SULFATE 4 MG/ML SYR IVP PRN ×6 (00:18→22:39)
--- NOTE | 2022-10-10 00:18 | NUR ---
PT COMPLAINTS OF PAIN ON CHEST AREA 10/10, PAIN MEDICATION MORPHINE ADMINISTERED ORDER.
[2022-10-10] MEDS: BLOOD GLUCOSE MONITORING 1 DEV DEV MC SCH ×4 (00:38→18:00)
--- NOTE | 2022-10-10 00:38 | NUR ---
BLOOD GLUCOSE CHECKED = 99, NO SLIDING SCALE COVERAGE.
--- NOTE | 2022-10-10 01:18 | NUR ---
REASSESSMENT OF PAIN, PT IS ASLEEP, NO FACIAL GRIMACING.
[2022-10-10 01:27] VITALS: PULSE 64; RESP 18; O2SAT 96
[2022-10-10] MEDS: ALBUTEROL 0.083% 2.5 MG/3 ML NEBU INH SCH ×4 (01:27→19:00)
[2022-10-10 04:00] VITALS: BP 128/77; PULSE 68; RESP 18; TEMP 98.3; O2SAT 98
--- NOTE | 2022-10-10 04:49 | NUR ---
PT COMPLAINTS OF CHEST PAIN 12/01, PAIN MEDICATION MORPHINE 4 MG ADMINISTERED ORDER. PT IS ON STABLE CONDITION.
[2022-10-10] MEDS: MEROPENEM 1,000 MG in NACL 0.9% 50 ML IV SCH ×3 (04:59→20:19)
--- NOTE | 2022-10-10 05:49 | NUR ---
REASSESSMENT OF PAIN, PT IS SLEEPING, NO FACIAL GRIMACING.
--- NOTE | 2022-10-10 06:26 | NUR ---
BLOOD SUGAR CHECKED = 94, NO SLIDING SCALE COVERAGE.
[2022-10-10 06:42] VITALS: O2SAT 97
--- NOTE | 2022-10-10 06:42 | NUR ---
RECEIVED PT ON ROOM AIR, SATURATION 97%. WOULD LIKE ME TO COME BACK LATER FOR HIS BREATHING TREATMENT. NO SOB, NO DISTRESS NOTED. CALL LIGHT WITHIN REACH OF PT. WILL CONTINUE TO MONITOR.
[2022-10-10 06:44] LABS: ANION GAP 8.2 (8-16); CARBON DIOXIDE 29.8 mmol/L (21-32); CREATININE 0.6 mg/dL (0.6-1.3)
[2022-10-10 06:57] LABS: MAGNESIUM 2.1 mg/dL (1.8-2.4); PHOSPHORUS 3.4 mg/dL (2.5-4.9)
--- NOTE | 2022-10-10 07:30 | NUR ---
RECEIVED BEDSIDE REPORT FROM NIGHTSHIFT NURSE. PT IS ASLEEP IN BED, WOKE TO NAME AND TOUCH. NO SIGNS OF DISTRESS, NO REPORTS OF PAIN OR DISCOMFORT. PT FELL BACK ASLEEP. PLACED CALL LIGHT WITHIN REACH. NO FURTHER NEEDS ARE TO BE MET AT THIS TIME, WILL CONTINUE WITH CARE.
[2022-10-10 08:00] VITALS: BP 121/70; PULSE 65; RESP 18; TEMP 98.1; O2SAT 100
[2022-10-10] MEDS: VALPROIC ACID 250 MG/5 ML UDC GT SCH ×2 (09:18→20:15)
[2022-10-10] MEDS: PANTOPRAZOLE 40 MG INJ VIAL IVP SCH ×2 (09:20→20:15)
[2022-10-10] MEDS: LIDOCAINE 5% 1 EA PATCH TP SCH (09:20)
[2022-10-10] MEDS: MUPIROCIN CA NASAL 2% 1GM TUBE NS SCH (09:20)
[2022-10-10] MEDS: THIAMINE 200 MG/2 ML VIAL IV SCH ×2 (09:20→20:15)
[2022-10-10] MEDS: FINASTERIDE 5 MG TAB GT SCH (09:21)
[2022-10-10] MEDS: HALOPERIDOL 5 MG TAB GT SCH ×2 (09:21→17:52)
[2022-10-10] MEDS: SUCRALFATE 1 GM TAB GT SCH ×4 (09:21→20:14)
[2022-10-10] MEDS: FOAM DRESSING TP SCH (09:22)
[2022-10-10] MEDS: ENOXAPARIN 40 MG/0.4 ML SYR SUBQ SCH (09:22)
[2022-10-10] MEDS: MICAFUNGIN SODIUM 100 MG in NACL 0.9% 100 ML IV SCH (10:54)
--- NOTE | 2022-10-10 13:02 | NUR ---
PT WOULD LIKED ME TO COME BACK LATER FOR HIS BREATHING TREATMENT. NO SOB, NO DISTRESS NOTED. PT RESTING COMFORTABLY. CALL LIGHT WITHIN REACH OF PATIENT. WILL CONTINUE TO MONITOR.
[2022-10-10] MEDS: THERAHONEY GEL 42.5 GM TP SCH (13:45)
[2022-10-10] MEDS: GAUZE TP SCH (13:47)
--- NOTE | 2022-10-10 14:48 | NUR ---
10/10/22 RD FOLLOW UP COMPLETED PLEASE REFER TO NUTRITION ASSESSMENT UNDER CARE ACTIVITY FOR ESTIMATED NUTRITIONAL NEEDS. 1. CONTINUE CURRENT TPN PER PHARMACY/MD 2. ONCE MEDICALLY APPROPRIATE PLEASE PROVIDE MAISHA BID FOR WOUND, THIS WILL PROVIDE 160 CALORIES AND 5 GRAMS OF PROTEIN. 3. RD WILL CONTINUE TO MONITOR TPN, WEIGHT AND NUTRITION RELATED LAB VALUES. 4. RD TO FOLLOW-UP 2-3 DAYS, HIGH RISK JOSHUA ALCOCER RD
[2022-10-10 16:00] VITALS: BP 126/75; PULSE 57; RESP 18; TEMP 98.7; O2SAT 99
--- NOTE | 2022-10-10 17:00 | NUR ---
PT CITY PLANNER (ERMA: ) CALLED, WANTED TO DISCUSS DETAILS OF TOMORROW'S HEARING WITH PT. TRANSFERRED CALL TO PT, PT ABLE TO SPEAK WITH CITY PLANNER.
--- NOTE | 2022-10-10 19:00 | NUR ---
ENDORSED TO NIGHTSHIFT NURSE FOR CONTINUITY OF CARE. PT STABLE - NO SIGNS OF DISTRESS. CALL LIGHT IS WITHIN REACH.
--- NOTE | 2022-10-10 19:15 | NUR ---
PATIENT AWAKE ON ROOM AIR. NO DISTRESS NOTED. BREATHING NORMAL NON LABORED. NO COMPLAINTS OF PAIN AT THIS TIME. TPN RUNNING TO RIGHT UPPER ARM TRIPLE LUMEN. CALL LIGHT WITHIN REACH. BED WHEELS LOCK IN LOW POSITION.
[2022-10-10] MEDS: AMINO ACIDS IV SCH ×4 (19:48)
[2022-10-10] MEDS: [UNRECOGNIZED DRUG - OTHER] IV SCH ×4 (19:48)
[2022-10-10] MEDS: DEXTROSE IV SCH ×4 (19:48)
[2022-10-10] MEDS: MULTIVITAMIN IV SCH ×4 (19:48)
--- NOTE | 2022-10-10 19:52 | NUR ---
PT REFUSED BREATHING TREATMENT, PT BREATH SOUNDS ARE CLEAR, SATURATION 100% CALL WITHIN REACH, WILL CONTINUE TO MONITOR
[2022-10-10 20:00] VITALS: BP 122/77; PULSE 64; RESP 17; TEMP 98.3; O2SAT 100
[2022-10-10] MEDS: TPN PER PHARMACY MC SCH (20:00)
[2022-10-10] MEDS: SENNA 8.6 MG TAB GT SCH (20:14)
--- NOTE | 2022-10-10 20:14 | NUR ---
ALL 2100 SCHEDULED MEDICATIONS ADMINISTERED PER MD ORDER.
[2022-10-11] VITALS (9 sets, daily range): BP systolic 106–125; BP diastolic 70–78; PULSE 63–76; RESP 16–19; TEMP 97.1–98.6; O2SAT 93–99
[2022-10-11] MEDS: BLOOD GLUCOSE MONITORING 1 DEV DEV MC SCH ×5 (00:32→23:28)
[2022-10-11] MEDS: ALBUTEROL 0.083% 2.5 MG/3 ML NEBU INH SCH ×4 (01:00→19:09)
--- NOTE | 2022-10-11 01:32 | NUR ---
PT REFUSED MEDICATION, PT IS IN NO DISTRESS ON ROOM, BREATH SOUNDS CLEAR, CALL LIGHT WITHIN REACH, WILL CONTINUE TO MONITOR
[2022-10-11] MEDS: MORPHINE SULFATE 4 MG/ML SYR IVP PRN ×5 (04:06→23:34)
[2022-10-11] MEDS: MEROPENEM 1,000 MG in NACL 0.9% 50 ML IV SCH ×3 (04:18→20:26)
[2022-10-11 06:26] LABS: ANION GAP 10.1 (8-16); CARBON DIOXIDE 28.2 mmol/L (21-32); CREATININE 0.5 mg/dL (0.6-1.3); POTASSIUM 4.3 mmol/L (3.5-5.1)
[2022-10-11 06:35] LABS: PHOSPHORUS 3.4 mg/dL (2.5-4.9)
--- NOTE | 2022-10-11 07:03 | NUR ---
will endorse to recovery operator rn for continuity of care . for schedule for tube placement
--- NOTE | 2022-10-11 07:20 | NUR ---
receive the patient from the operation shift supervisor rn in [id number] with episode of confusion admitting diagnosis of esophageal varices still on TPN at 60mls/hr . will continue to monitor . with J tube for medications
--- NOTE | 2022-10-11 07:32 | NUR ---
GAVE BEDSIDE REPORT TO AM NURSE FOR CONTINUITY OF CARE. PATIENT STABLE.
--- NOTE | 2022-10-11 07:36 | NUR ---
PT IS ASLEEP TX NOT GIVEN. NO DISTRESS NOTED CALL LIGHT IS IN ARMS REACH WILL CONTINUE TO MONITOR.
[2022-10-11] MEDS: VALPROIC ACID 250 MG/5 ML UDC GT SCH ×2 (08:56→20:28)
[2022-10-11] MEDS: HALOPERIDOL 5 MG TAB GT SCH ×2 (08:57→17:44)
[2022-10-11] MEDS: PANTOPRAZOLE 40 MG INJ VIAL IVP SCH ×2 (08:57→20:27)
[2022-10-11] MEDS: FINASTERIDE 5 MG TAB GT SCH (08:57)
[2022-10-11] MEDS: LIDOCAINE 5% 1 EA PATCH TP SCH (08:57)
[2022-10-11] MEDS: ENOXAPARIN 40 MG/0.4 ML SYR SUBQ SCH (08:58)
[2022-10-11] MEDS: THIAMINE 200 MG/2 ML VIAL IV SCH ×2 (08:59→20:28)
[2022-10-11] MEDS: SUCRALFATE 1 GM TAB GT SCH ×4 (09:02→20:28)
[2022-10-11] MEDS: MICAFUNGIN SODIUM 100 MG in NACL 0.9% 100 ML IV SCH (09:03)
--- NOTE | 2022-10-11 10:20 | NUR ---
WOUND CARE RE-EVALUATION NOTE: WOUND ASSESSMENT DONE, DRESSING CHANGED, SACRALCOCCYX NO CHANGE OF CONDITION, JOSHUA-WOUND SKIN BLANCHABLE REDNESS, WILL CONTINUE SAME INTERVENTIONS. -GT JOSHUA-STOMA SKIN DRY AND CLEAN -COCCYX PRESSURE INJURY UN-STAGEABLE 3X2CM 100% YELLOW SLOUGH TISSUE, MOIST, NO ODOR ,JOSHUA-WOUND SKIN BLANCHABLE REDNESS AND INTACT. -RIGHT PLANTAR 2X2CM DRY STABLE SCAB -LEFT MEDIAL KNEE 1.5X1.5CM DRY STABLE SCAB -RIGHT LATERAL FOOT 4X0.8CM DRY STABLE SCAB
[2022-10-11] MEDS: GAUZE TP SCH (13:00)
[2022-10-11] MEDS: THERAHONEY GEL 42.5 GM TP SCH (13:00)
--- NOTE | 2022-10-11 13:41 | NUR ---
PT RECEIVED TX. SCANNER NOT WORKING. WORK ORDER WILL BE PLACED FOR SCANNER LE NO DISTRESS NOTED.
--- NOTE | 2022-10-11 17:20 | NUR ---
was able to acquire consent for tube for the patient from [facility] fax [phone] .
[2022-10-11] MEDS: DEXTROSE IV SCH ×8 (19:56→20:22)
[2022-10-11] MEDS: MULTIVITAMIN IV SCH ×8 (19:56→20:22)
[2022-10-11] MEDS: AMINO ACIDS IV SCH ×8 (19:56→20:22)
[2022-10-11] MEDS: [UNRECOGNIZED DRUG - OTHER] IV SCH ×8 (19:56→20:22)
[2022-10-11] MEDS: TPN PER PHARMACY MC SCH (20:00)
[2022-10-11] MEDS: SENNA 8.6 MG TAB GT SCH (20:28)
--- NOTE | 2022-10-11 20:28 | NUR ---
ALL 2100 SCHEDULED MEDICATIONS ADMINISTERED PER MD ORDER.
--- NOTE | 2022-10-11 22:29 | NUR ---
RECEIVED PATIENT RESTING IN BED ON ROOM AIR IN NO ACUTE DISTRESS. TPN RUNNING ORDERED TO RIGHT UPPER ARM TRIPLE LUMEN. G-TUBE IN PLACE AND PATENT. DENIES PAIN. CALL LIGHT ON EASY REACH. SAFETY MEASURES IN PLACE. STABLE.
[2022-10-12] VITALS (8 sets, daily range): BP systolic 105–108; BP diastolic 58–68; PULSE 58–72; RESP 15–19; TEMP 97.1–98.2; O2SAT 92–99
[2022-10-12] MEDS: ALBUTEROL 0.083% 2.5 MG/3 ML NEBU INH SCH ×3 (01:00→13:00)
[2022-10-12] MEDS: MEROPENEM 1,000 MG in NACL 0.9% 50 ML IV SCH ×3 (04:27→20:37)
[2022-10-12] MEDS: MORPHINE SULFATE 4 MG/ML SYR IVP PRN ×3 (05:43→15:18)
[2022-10-12] MEDS: BLOOD GLUCOSE MONITORING 1 DEV DEV MC SCH ×4 (05:57→23:40)
--- NOTE | 2022-10-12 06:59 | NUR ---
ALL NEEDS MET THROUGHOUT THE SHIFT. PATIENT IN STABLE CONDITION. WILL ENDORSE TO THE MORNING NURSE FOR CONTINUITY OF CARE.
--- NOTE | 2022-10-12 07:05 | NUR ---
receive the patient from the shift manager alejo Niño in rm 105A admitting diagnosis of esophageal varices . for possible Gastric tube placement . also for pain mgt . will continue to monitor
[2022-10-12 07:30] LABS: MAGNESIUM 2.1 mg/dL (1.8-2.4); PHOSPHORUS 4.2 mg/dL (2.5-4.9)
[2022-10-12 09:33] LABS: ANION GAP 10.1 (8-16); CARBON DIOXIDE 28.4 mmol/L (21-32); CREATININE 0.6 mg/dL (0.6-1.3); POTASSIUM 4.5 mmol/L (3.5-5.1)
[2022-10-12] MEDS: FINASTERIDE 5 MG TAB GT SCH (09:43)
[2022-10-12] MEDS: HALOPERIDOL 5 MG TAB GT SCH ×2 (09:44→16:48)
[2022-10-12] MEDS: PANTOPRAZOLE 40 MG INJ VIAL IVP SCH ×2 (09:44→20:32)
[2022-10-12] MEDS: VALPROIC ACID 250 MG/5 ML UDC GT SCH ×2 (09:44→20:32)
[2022-10-12] MEDS: SUCRALFATE 1 GM TAB GT SCH ×4 (09:44→20:33)
[2022-10-12] MEDS: LIDOCAINE 5% 1 EA PATCH TP SCH (09:45)
[2022-10-12] MEDS: MICAFUNGIN SODIUM 100 MG in NACL 0.9% 100 ML IV SCH (09:45)
[2022-10-12] MEDS: THIAMINE 200 MG/2 ML VIAL IV SCH ×2 (09:46→20:33)
[2022-10-12] MEDS: ENOXAPARIN 40 MG/0.4 ML SYR SUBQ SCH (09:47)
[2022-10-12] MEDS: THERAHONEY GEL 42.5 GM TP SCH (13:41)
[2022-10-12] MEDS: GAUZE TP SCH (13:42)
[2022-10-12] MEDS ORDERED: ALBUTEROL 0.083% 2.5 MG/3 ML NEBU INH PRN (13:45)
--- NOTE | 2022-10-12 14:03 | NUR ---
ANSWERED CALL LIGHT FOR PT. PT IS REQUESTING NURSE FOR PAIN MEDS . RN NOTIFIED
[2022-10-12] MEDS ORDERED: oxyCODONE 5 MG TAB PO PRN (15:05)
--- NOTE | 2022-10-12 18:57 | NUR ---
inform maurilio Noe [phone] regarding the transfer of the patient fro MRI to another hospital
--- NOTE | 2022-10-12 19:16 | NUR ---
will endorse to [facility] shift lead alejo Niño for continuity of care . for infectious disease Md consult . Md Campos seen the patient
[2022-10-12] MEDS: [UNRECOGNIZED DRUG - OTHER] IV SCH ×4 (19:41)
[2022-10-12] MEDS: MULTIVITAMIN IV SCH ×4 (19:41)
[2022-10-12] MEDS: AMINO ACIDS IV SCH ×4 (19:41)
[2022-10-12] MEDS: DEXTROSE IV SCH ×4 (19:41)
--- NOTE | 2022-10-12 19:45 | NUR ---
PATIENT AWAKE VERBALLY RESPONSIVE. ABLE TO MAKE NEEDS KNOWN. NO SOB NOTED. BREATHING EVEN UNLABORED. CALL LIGHT WITHIN REACH. DENIES PAIN. HANGED A NEW BAG OF TPN TO RIGHT UPPER ARM TRIPLE LUMEN. SAFETY PRECAUTIONS ARE IN PLACE.
[2022-10-12] MEDS: TPN PER PHARMACY MC SCH (19:54)
--- NOTE | 2022-10-12 20:32 | NUR ---
ALL SCHEDULED MEDICATIONS DUE GIVEN ORDERED.
[2022-10-12] MEDS: MELATONIN 3 MG TAB GT PRN (20:33)
[2022-10-12] MEDS: SENNA 8.6 MG TAB GT SCH (20:33)
[2022-10-13] VITALS (7 sets, daily range): BP systolic 102–109; BP diastolic 59–67; PULSE 58–69; RESP 17–20; TEMP 97.1–98.7; O2SAT 93–100
[2022-10-13] MEDS: MORPHINE SULFATE 4 MG/ML SYR IVP PRN ×4 (03:32→23:45)
[2022-10-13] MEDS: MEROPENEM 1,000 MG in NACL 0.9% 50 ML IV SCH ×2 (05:23→13:57)
[2022-10-13] MEDS: BLOOD GLUCOSE MONITORING 1 DEV DEV MC SCH ×4 (05:33→23:32)
[2022-10-13 07:03] LABS: ANION GAP 7.2 (8-16); CARBON DIOXIDE 30.4 mmol/L (21-32); CREATININE 0.6 mg/dL (0.6-1.3); POTASSIUM 4.6 mmol/L (3.5-5.1)
--- NOTE | 2022-10-13 07:06 | NUR ---
receive the patient from the slot shift supervisor alejo putnam with admitting diagnosis of esophageal varices .still for jejunum tube placement . will continue to monitor
[2022-10-13 07:11] LABS: PHOSPHORUS 3.5 mg/dL (2.5-4.9)
--- NOTE | 2022-10-13 07:23 | NUR ---
GAVE REPORT TO AM NURSE FOR CONTINUITY OF CARE. PATIENT STABLE.
[2022-10-13] MEDS: SUCRALFATE 1 GM TAB GT SCH ×4 (09:20→20:59)
[2022-10-13] MEDS: HALOPERIDOL 5 MG TAB GT SCH ×2 (09:20→17:35)
[2022-10-13] MEDS: MICAFUNGIN SODIUM 100 MG in NACL 0.9% 100 ML IV SCH (09:20)
[2022-10-13] MEDS: FINASTERIDE 5 MG TAB GT SCH (09:20)
[2022-10-13] MEDS: PANTOPRAZOLE 40 MG INJ VIAL IVP SCH ×2 (09:21→20:59)
[2022-10-13] MEDS: VALPROIC ACID 250 MG/5 ML UDC GT SCH ×2 (09:21→21:00)
[2022-10-13] MEDS: LIDOCAINE 5% 1 EA PATCH TP SCH (09:21)
[2022-10-13] MEDS: THIAMINE 200 MG/2 ML VIAL IV SCH ×2 (09:22→20:59)
[2022-10-13] MEDS: ENOXAPARIN 40 MG/0.4 ML SYR SUBQ SCH (09:24)
[2022-10-13] MEDS: FOAM DRESSING TP SCH (09:24)
[2022-10-13] MEDS: GAUZE TP SCH (13:00)
[2022-10-13] MEDS: THERAHONEY GEL 42.5 GM TP SCH (13:00)
--- NOTE | 2022-10-13 14:02 | NUR ---
10/13/22 RD FOLLOW UP COMPLETED PLEASE REFER TO NUTRITION ASSESSMENT UNDER CARE ACTIVITY FOR ESTIMATED NUTRITIONAL NEEDS. 1. CONTINUE CURRENT TPN PER PHARMACY/MD 2. WHEN/IF MEDICALLY APPROPRIATE TO START TUBE FEEDING, RECOMMEND JEVITY 1.2 @ 65ML/HR WITH FWF 200ML Q6H OR PER MD -RECOMMEND ADDING MAISHA BID PER RX PROTOCOL FOR WOUNDS -START AT 10ML/HR AND INCREASE BY 10ML Q4H TOLERATED -WITH MAISHA BID, PT WILL RECEIVE 2032KCAL AND 92G PROTEIN, MEETING ~100% ESTIMATED NUTRITIONAL NEEDS 3. RD WILL CONTINUE TO MONITOR TPN, WEIGHT AND NUTRITION RELATED LAB VALUES. 4. RD TO FOLLOW-UP 2-3 DAYS, HIGH RISK DEONDRE HERNANDEZ RD
--- NOTE | 2022-10-13 18:49 | NUR ---
will endorse to night monitor rn for continuity of care . for gastric tube to jejunum tube feeding . will start on gastric tube feeding Jevity 1.2 at 10ml/hr increase q 4hr up to goal of 30ml/hr .water flush of 10ml/hr q 4hr .
[2022-10-13] MEDS: MULTIVITAMIN IV SCH ×4 (19:30)
[2022-10-13] MEDS: DEXTROSE IV SCH ×4 (19:30)
[2022-10-13] MEDS: AMINO ACIDS IV SCH ×4 (19:30)
[2022-10-13] MEDS: [UNRECOGNIZED DRUG - OTHER] IV SCH ×4 (19:30)
--- NOTE | 2022-10-13 19:30 | NUR ---
Patient awake alert verbally responsive. Able to communicate with his needs. No acute distress on room air. Hanged a new TPN bag to right upper arm triple lumen. Started G-tube feeding Jevity 1.2 at 10 ml/hr goal of 30 ml/hr. No complaints of pain at this time. Call light within reach. Bed wheels locked in low position.
[2022-10-13] MEDS: TPN PER PHARMACY MC SCH (20:00)
--- NOTE | 2022-10-13 20:17 | NUR ---
PATIENT SATURATION 100% ON ROOM AIR, CALL LIGHT WITHIN REACH, WILL CONTINUE TO MONITOR
[2022-10-13] MEDS: MELATONIN 3 MG TAB GT PRN (20:59)
[2022-10-13] MEDS: SENNA 8.6 MG TAB GT SCH (20:59)
--- NOTE | 2022-10-13 20:59 | NUR ---
ALL MEDICATIONS DUE ADMINISTERED ORDERED.
[2022-10-14 04:00] VITALS: BP 102/57; PULSE 91; RESP 18; TEMP 98.4; O2SAT 100
[2022-10-14] MEDS: BLOOD GLUCOSE MONITORING 1 DEV DEV MC SCH ×3 (05:51→20:50)
--- NOTE | 2022-10-14 06:39 | NUR ---
PATIENT ASLEEP WITH SYMMETRICAL RISE AND FALL OF THE CHEST. TPN ONGOING TO KARLOS TRIPLE LUMEN. CALL LIGHT ON EASY REACH. WILL ENDORSE TO THE AM NURSE FOR CONTINUITY OF CARE.
[2022-10-14 06:48] LABS: ANION GAP 10.5 (8-16); CREATININE 0.5 mg/dL (0.6-1.3); POTASSIUM 4.5 mmol/L (3.5-5.1)
[2022-10-14 07:05] LABS: MAGNESIUM 2.1 mg/dL (1.8-2.4); PHOSPHORUS 3.7 mg/dL (2.5-4.9)
--- NOTE | 2022-10-14 07:10 | NUR ---
RECEIVED REPORT FROM FARM TRACTOR OPERATOR NURSE FOR CONTINUITY OF CARE. PT IS STABLE.
[2022-10-14 07:11] VITALS: PULSE 68; RESP 16; O2SAT 96
[2022-10-14 08:00] VITALS: BP 99/66; PULSE 85; RESP 18; TEMP 98.7; O2SAT 100
[2022-10-14 09:33] LABS: ALBUMIN 2.6 g/dL (3.4-5.0); BILIRUBIN,DIRECT 0.1 mg/dL (0.0-0.3); CHOL/HDL RATIO 4.5 (1-4.5); TOTAL BILIRUBIN 0.3 mg/dL (0.0-1.0)
[2022-10-14] MEDS: LIDOCAINE 5% 1 EA PATCH TP SCH (09:36)
[2022-10-14] MEDS: VALPROIC ACID 250 MG/5 ML UDC GT SCH ×2 (09:37→20:28)
[2022-10-14] MEDS: THIAMINE 200 MG/2 ML VIAL IV SCH ×2 (09:37→20:29)
[2022-10-14] MEDS: PANTOPRAZOLE 40 MG INJ VIAL IVP SCH ×2 (09:37→20:29)
[2022-10-14] MEDS: MORPHINE SULFATE 4 MG/ML SYR IVP PRN ×3 (09:38→21:37)
[2022-10-14] MEDS: FINASTERIDE 5 MG TAB GT SCH (09:38)
[2022-10-14] MEDS: HALOPERIDOL 5 MG TAB GT SCH ×2 (09:39→17:27)
[2022-10-14] MEDS: SUCRALFATE 1 GM TAB GT SCH ×4 (09:39→20:29)
[2022-10-14] MEDS: ENOXAPARIN 40 MG/0.4 ML SYR SUBQ SCH (09:46)
[2022-10-14] MEDS: GAUZE TP SCH (13:00)
[2022-10-14] MEDS: THERAHONEY GEL 42.5 GM TP SCH (13:00)
[2022-10-14 16:00] VITALS: BP 96/62; PULSE 80; RESP 18; TEMP 98.2; O2SAT 99
--- NOTE | 2022-10-14 16:25 | NUR ---
DR HERNANDEZ STATED THAT HE NEEDS A COPY OF THE PTS PAST EGD BEFORE HE CAN MAKE A PLAN. HE ASLO STATED THAT ONCE PT IS TOLERATING THE TUBE FEED THAT WE COULD DISCONTINUE THE TPN ORDER.
--- NOTE | 2022-10-14 18:40 | NUR ---
1410: STARTED TUBE FEED AT 10ML/HR WITH 10ML WATER FLUSH EVER 4 HOURS. 1510: INCREASED FEED TO 20ML/HR AFTER PATIENT STATED THAT HE HAD NO N/V/D. 1620: INCREASED FEED TO 30ML/HR AFTER PATIENT STATED THAT HE HAD NO N/V/D. 1728: INCREASED FEED TO 40ML/HR AFTER PATIENT STATED THAT HE HAD NO N/V/D. ALSO INCREASED WATER TO 100ML EVERY 4 HOURS. 1839: INCREASED FEED TO 50ML/HR AFTER PATIENT STATED THAT HE HAD NO N/V/D.
[2022-10-14 19:24] VITALS: O2SAT 100
--- NOTE | 2022-10-14 19:24 | NUR ---
PT FOUND ASLEEP ON ROOM AIR. O2 SATURATION WAS 100%. WILL CONTINUE FUNMI MONITOR PT. CALL LIGHT ON BED WITHIN REACH OF PATIENT.
--- NOTE | 2022-10-14 19:36 | NUR ---
ENDORSED PT TO IMPORT/EXPORT ADMINISTRATOR NURSE FRO CONTINUITY OF CARE. PT STABLE AT THIS TIME.
--- NOTE | 2022-10-14 19:40 | NUR ---
PATIENT AWAKE IN BED WELL RESTED. NO S/S OF RESPIRATORY DISTRESS ON ROOM AIR. TPN INFUSING ORDERED TO RIGHT UPPER ARM TRIPLE LUMEN. G-TUBE FEEDING RUNNING AT 50 MLS/HR TOLERATING WELL. NO RESIDUAL NOTED. DENIES PAIN. CALL LIGHT WITHIN REACH. ALL SAFETY PRECAUTIONS ARE IN PLACE.
[2022-10-14 20:00] VITALS: PULSE 84; RESP 18; TEMP 99; O2SAT 99
[2022-10-14] MEDS ORDERED: [UNRECOGNIZED DRUG - OTHER] IV SCH ×4 (20:00)
[2022-10-14] MEDS ORDERED: DEXTROSE IV SCH ×4 (20:00)
[2022-10-14] MEDS: TPN PER PHARMACY MC SCH (20:00)
[2022-10-14] MEDS ORDERED: MULTIVITAMIN IV SCH ×4 (20:00)
[2022-10-14] MEDS ORDERED: AMINO ACIDS IV SCH ×4 (20:00)
--- NOTE | 2022-10-14 20:28 | NUR ---
ADMINISTERED SCHEDULED DUE MEDICATIONS.
[2022-10-14] MEDS: MELATONIN 3 MG TAB GT PRN (20:29)
[2022-10-14] MEDS: SENNA 8.6 MG TAB GT SCH (20:29)
[2022-10-15] VITALS (8 sets, daily range): BP systolic 92–103; BP diastolic 54–64; PULSE 74–90; RESP 17–18; TEMP 97.6–98.8; O2SAT 93–97
[2022-10-15 06:49] LABS: ANION GAP 9.1 (8-16); CARBON DIOXIDE 29.4 mmol/L (21-32); CREATININE 0.6 mg/dL (0.6-1.3); POTASSIUM 4.5 mmol/L (3.5-5.1)
--- NOTE | 2022-10-15 07:10 | NUR ---
RECEIVED REPORT FROM INSURANCE SERVICE REPRESENTATIVE NURSE FOR CONTINUITY OF CARE. PT IS STABLE.
[2022-10-15 07:18] LABS: MAGNESIUM 1.9 mg/dL (1.8-2.4); PHOSPHORUS 3.4 mg/dL (2.5-4.9)
--- NOTE | 2022-10-15 07:34 | NUR ---
ALL NEEDS ATTENDED THROUGHOUT THE SHIFT. GAVE REPORT TO AM NURSE FOR CONTINUITY OF CARE. PATIENT STABLE.
--- NOTE | 2022-10-15 08:45 | NUR ---
DR HERNANDEZ CALLED AND ASKED ABOUT THE EGD RESULTS AND I INFORMED HIM THAT WE DID NOT HAVE THEM. HE ALSO LET ME KNOW TO DISCONTINUE TPN, START A FULL LIQUID DIET AND CONSULT DIETARY TO EDUCATE PATIENT ABOUT SOFT DIET.
[2022-10-15] MEDS: BLOOD GLUCOSE MONITORING 1 DEV DEV MC SCH ×2 (09:00→21:41)
[2022-10-15] MEDS: VALPROIC ACID 250 MG/5 ML UDC GT SCH ×2 (10:23→21:30)
[2022-10-15] MEDS: LIDOCAINE 5% 1 EA PATCH TP SCH (10:24)
[2022-10-15] MEDS: PANTOPRAZOLE 40 MG INJ VIAL IVP SCH ×2 (10:24→21:27)
[2022-10-15] MEDS: THIAMINE 200 MG/2 ML VIAL IV SCH ×2 (10:24→21:33)
[2022-10-15] MEDS: MORPHINE SULFATE 4 MG/ML SYR IVP PRN ×3 (10:25→21:26)
[2022-10-15] MEDS: HALOPERIDOL 5 MG TAB GT SCH ×2 (10:25→18:27)
[2022-10-15] MEDS: FINASTERIDE 5 MG TAB GT SCH (10:25)
[2022-10-15] MEDS: SUCRALFATE 1 GM TAB GT SCH ×4 (10:26→21:29)
[2022-10-15] MEDS: ENOXAPARIN 40 MG/0.4 ML SYR SUBQ SCH (10:26)
--- NOTE | 2022-10-15 10:33 | NUR ---
CALLED TREAD BOOKER [place] ABOUT GETTING A HOLD OF [facility] TO GET A COPY OF THE PATIENTS EGD RESULTS/STUDY. [place] SAID SHE HAS NOT HEARD ANYTHING FROM THEM.
[2022-10-15] MEDS: GAUZE TP SCH (13:00)
--- NOTE | 2022-10-15 13:45 | NUR ---
FNS CONSULT FOR EDUCATION ON PUREE DIET RECEIVED ON 10/15/22. RD WILL GO OVER EDUCATION ON PUREE DIET WITH PATIENT TODAY 10/15/22. JOSHUA ALCOCER RD
--- NOTE | 2022-10-15 13:46 | NUR ---
RD GAVE EDUCATION TO PATIENT IN ROOM ON PUREE DIET. RD GAVE HANDOUTS ON PUREE DIET FOODS AND HOW TO PREPARE THEM. PATIENT VERBALIZED UNDERSTANDING AND KEPT A COPY OF THE HANDOUTS AT BEDSIDE. JOSHUA ALCOCER RD
[2022-10-15] MEDS: THERAHONEY GEL 42.5 GM TP SCH (14:23)
--- NOTE | 2022-10-15 19:52 | NUR ---
ENDORSED TO HEEL FORMER NURSE FOR CONTINUITY OF CARE. PT TABLE AT THIS TIME.
--- NOTE | 2022-10-15 19:53 | NUR ---
RECEIVED PT FROM MORNING SHIFT NURSE. PT IS ON BEDREST, AOX3 WITH SPEECH DELAYED, ABLE TO VERBALIZE NEEDS AND ABLE TO FOLLOW COMMANDS. PT IS ON ROOM AIR AND ON FULL LIQUID. PT HAS G-TUBE FEEDING RUNNING WITH JEVITY 1.2 AT 60ML/HR WITH WATER FLUSH OF 100ML EVERY 4HRS. PT HAS RIGHT UPPER ARM 3X LUMEN PICC LINE, SALINE LOCK. PT HAS PRESSURE ULCER ON SACRAL. PT DENIES PAIN AT THIS TIME. NO S/S OF RESPIRATORY DISTRESS NOTED. ALL SAFETY MEASURES IMPLEMENTED, BED IN LOW POSITION, BED WHEELS ON LOCK AND CALL LIGHT WITHIN REACH.
[2022-10-15] MEDS: SENNA 8.6 MG TAB GT SCH (21:30)
--- NOTE | 2022-10-15 21:49 | NUR ---
ALL SCHEDULED AND PRESCRIBED MEDICATION WAS GIVEN TO PT PER MD ORDER. PT WAS ALSO GIVEN PRN MORPHINE DUE TO PAIN ON RIBS. PT BLOOD GLUCOSE IS 79. APPLE JUICE WAS GIVEN TO PT. ALL SAFETY MEASURES IMPLEMENTED, BED IN LOW POSITION, BED WHEELS ON LOCK AND CALL LIGHT WITHIN REACH.
[2022-10-15] MEDS: MELATONIN 3 MG TAB GT PRN (23:02)
--- NOTE | 2022-10-15 23:02 | NUR ---
PT WAS GIVEN MELATONIN PER PT REQUEST. NO COMPLAIN OF PAIN AT THIS TIME. NO S/S OF RESPIRATORY DISTRESS NOTED. ALL SAFETY MEASURES IMPLEMENTED, BED IN LOW POSITION, BED WHEELS ON LOCK AND CALL LIGHT WITHIN REACH.
[2022-10-16] MEDS: MORPHINE SULFATE 4 MG/ML SYR IVP PRN ×4 (02:02→22:32)
--- NOTE | 2022-10-16 02:02 | NUR ---
PT WAS GIVEN PRN MORPHINE DUE TO PAIN ON BACK WITH PAIN SCALE OF 7/10. ALL SAFETY MEASURES IMPLEMENTED, BED IN LOW POSITION, BED WHEELS ON LOCK AND CALL LIGHT WITHIN REACH.
[2022-10-16 04:00] VITALS: BP 99/57; PULSE 92; RESP 18; TEMP 97.8; O2SAT 95
--- NOTE | 2022-10-16 04:00 | NUR ---
MORNING CARE WAS DONE TO PT. CHANGED LINENS, BLANKET AND GOWN. NO COMPLAIN OF PAIN. NO RESPIRATORY DISTRESS NOTED. ALL SAFETY MEASURES IMPLEMENTED, BED IN LOW POSITION, BED WHEELS ON LOCK AND CALL LIGHT WITHIN REACH.
--- NOTE | 2022-10-16 07:35 | NUR ---
PT IS STABLE. ENDORSED PT TO MORNING SHIFT FOR CONTINUITY OF CARE.
[2022-10-16 08:00] VITALS: PULSE 64; RESP 16; TEMP 98; O2SAT 97
[2022-10-16 08:19] VITALS: PULSE 85; RESP 16; O2SAT 97
[2022-10-16 08:39] LABS: BASOPHILS # (AUTO) 0.1 K/uL (0.00-0.22); BASOPHILS % (AUTO) 1.3 % (0.0-2.0); EOSINOPHILS # (AUTO) 0.2 K/uL (0-0.4); EOSINOPHILS % (AUTO) 3.2 % (0.0-4.0); HEMATOCRIT 30.4 % (36-52); HEMOGLOBIN 9.9 g/dL (12.0-18.0); LYMPHOCYTES # (AUTO) 1.3 K/uL (2.0-11.5); LYMPHOCYTES % (AUTO) 18.6 % (20.5-51.1); MEAN CORPUSCULAR HEMOGLOBIN 26 pg (27-31); MEAN CORPUSCULAR HGB CONC 33 g/dL (33-37); MEAN CORPUSCULAR VOLUME 80.3 fL (80-94); MONOCYTES % (AUTO) 14.5 % (1.7-9.3); NEUTROPHILS # (AUTO) 4.3 K/uL (1.8-7.7); NEUTROPHILS % (AUTO) 62.4 % (42.2-75.2); PLATELET COUNT (AUTO) 364 K/uL (140-450); RED BLOOD CELL COUNT(AUTO) 3.79 MIL/uL (4.20-6.10); RED CELL DISTRIBUTION WIDTH 18.7 % (11.6-13.7); WHITE BLOOD COUNT (AUTO) 6.8 K/uL (4.8-10.8)
[2022-10-16 08:41] LABS: ANION GAP 6.7 (8-16); CREATININE 0.6 mg/dL (0.6-1.3); POTASSIUM 4.7 mmol/L (3.5-5.1)
[2022-10-16] MEDS: FOAM DRESSING TP SCH (09:00)
[2022-10-16] MEDS: SUCRALFATE 1 GM TAB GT SCH ×2 (09:00→13:00)
[2022-10-16] MEDS: BLOOD GLUCOSE MONITORING 1 DEV DEV MC SCH ×2 (09:00→20:51)
[2022-10-16] MEDS: ENOXAPARIN 40 MG/0.4 ML SYR SUBQ SCH (09:00)
[2022-10-16] MEDS: LIDOCAINE 5% 1 EA PATCH TP SCH (09:00)
[2022-10-16] MEDS: PANTOPRAZOLE 40 MG INJ VIAL IVP SCH ×2 (10:02→20:36)
[2022-10-16] MEDS: HALOPERIDOL 5 MG TAB GT SCH ×2 (10:02→18:30)
[2022-10-16] MEDS: FINASTERIDE 5 MG TAB GT SCH (10:03)
[2022-10-16] MEDS: THIAMINE 200 MG/2 ML VIAL IV SCH ×2 (10:03→20:35)
[2022-10-16] MEDS: VALPROIC ACID 250 MG/5 ML UDC GT SCH ×2 (10:03→20:35)
[2022-10-16] MEDS: THERAHONEY GEL 42.5 GM TP SCH (13:00)
[2022-10-16] MEDS: GAUZE TP SCH (13:00)
--- NOTE | 2022-10-16 13:00 | NUR ---
10/16/22 RD FOLLOW UP COMPLETED PLEASE REFER TO NUTRITION ASSESSMENT UNDER CARE ACTIVITY FOR ESTIMATED NUTRITIONAL NEEDS. 1. CONTINUE NPO DIET TOLERATED. ONCE MEDICALLY APPROPRIATE ADVANCE BACK TO FULL LIQUID DIET. IF PATIENT IS TOLERATING FULL LIQUID WELL ADVANCE TO PUREE DIET. 2. RD WILL CONTINUE TO MONITOR PO INTAKE, GI ISSUES AND NUTRITION RELATED LAB VALUES. 3. RD TO FOLLOW-UP 2-3 DAYS, HIGH RISK JOSHUA ALCOCER RD
--- NOTE | 2022-10-16 13:00 | NUR ---
WOUND CARE DONE. OLD DRESSING REMOVED, SMALL AMOUNT OF DRAINAGE - NO ODOR. CLEANSED WITH NS, PAT DRIED, NEW DRESSING APPLIED. PT TOLERATED WOUND CARE WELL. WILL CONTINUE WITH PT CARE. CALL LIGHT IS WITHIN REACH.
--- NOTE | 2022-10-16 13:13 | NUR ---
CONTACTED PT CONSERVATOR (LETICIA MILTON - ) REGARDING CONSENT FOR EGD/STENT REMOVAL. WAS TOLD IT WOULD BE REVIEWED AND SIGNED. FAXED CONSENT FORM TO , NO RESPONSE YET. PT PROCEDURE SCHEDULED FOR 1449. INFORMED DR HERNANDEZ. PROCEDURE NOW POSTPONED TO TOMORROW AT 2. INSTRUCTED BY DR HERNANDEZ TO START FEEDING, THEN NPO AFTER BREAKFAST TOMORROW.
--- NOTE | 2022-10-16 14:30 | NUR ---
CONSENT FORMS SENT BY PT CONSERVATOR WERE RECEIVED. INFORMED MD. MD WILL PROCEED WITH EGD/STENT REMOVAL TOMORROW AT 2PM. PT NPO AT MIDNIGHT TONIGHT.
--- NOTE | 2022-10-16 19:15 | NUR ---
ENDORSED TO NIGHTSHIFT NURSE FOR CONTINUITY OF CARE. PT STABLE, IN BED. NO SIGNS OF DISTRESS. CALL LIGHT IS WITHIN REACH.
[2022-10-16 19:22] VITALS: O2SAT 95
[2022-10-16 20:00] VITALS: BP 98/61; PULSE 76; RESP 16; TEMP 98.6; O2SAT 96
[2022-10-16] MEDS: SENNA 8.6 MG TAB GT SCH (20:35)
--- NOTE | 2022-10-16 20:51 | NUR ---
ALL SCHEDULED AND PRESCRIBED MEDICATION WAS GIVEN TO PT PER MD ORDER. PT BLOOD GLUCOSE IS 107. NO INSULIN COVERAGE NEEDED. ALL SAFETY MEASURES IMPLEMENTED, BED IN LOW POSITION, BED WHEELS ON LOCK AND CALL LIGHT WITHIN REACH.
--- NOTE | 2022-10-16 22:32 | NUR ---
PRN PAIN MEDICATION WAS GIVEN TO PT DUE TO GENERALIZED PAIN WITH PAIN SCALE OF 9/10. ALL SAFETY MEASURES IMPLEMENTED. BED IN LOW POSITION AND BED WHEELS ON LOCK.
[2022-10-17] VITALS (7 sets, daily range): BP systolic 99–107; BP diastolic 52–67; PULSE 55–88; RESP 17–19; TEMP 97.1–98.7; O2SAT 95–100
--- NOTE | 2022-10-17 | NUR ---
STOP G-TUBE FEEDING TO THE PT. REMINDED THE PT THAT HE'S NOT ABLE TO EAT OR DRINK. PT VERBALIZE UNDERSTANDING. ALL SAFETY MEASURES IMPLEMENTED. BED IN LOW POSITION AND BED WHEELS ON LOCK.
--- NOTE | 2022-10-17 02:00 | NUR ---
PT IS ON SLEEP. CHEST RISE AND FALL SYMMETRICALLY NOTED. RESPIRATION IS EVEN AND UNLABORED. ALL SAFETY MEASURES IMPLEMENTED. BED IN LOW POSITION. BED WHEELS ON LOCK AND CALL LIGHT WITHIN REACH.
--- NOTE | 2022-10-17 04:00 | NUR ---
MORNING CARE WAS DONE TO PT. CHANGED GOWN, LINENS AND BLANKET. NO S/S OF RESPIRATORY DISTRESS NOTED. ALL SAFETY MEASURES IMPLEMENTED. BED IN LOW POSITION. BED WHEELS ON LOCK AND CALL LIGHT WITHIN REACH.
--- NOTE | 2022-10-17 06:52 | NUR ---
RECEIVED PT ON ROOM AIR, SATURATION 96%. NO SOB, NO DISTRESS, NO WHEEZE HEARD ON AUSCULTATION, EQUAL CHEST RISE. PT RESTING. CALL LIGHT WITHIN REACH OF PATIENT. WILL CONTINUE TO MONITOR.
--- NOTE | 2022-10-17 07:25 | NUR ---
receive the patient from the shift production associate alejo Funes in rm 105A aox4 with admitting diagnosis of esophageal taer . oax4 . still NPO mn for EGD with stent removal today . will continue to monitor . .
--- NOTE | 2022-10-17 07:30 | NUR ---
patient received at bed side ,A/OX3 , VSS , MED SURG PATIENT , NPO , FOR EGD TODAY NO COMPLAIN , IN SAFETY POSITION , SIDE RAILS UP X2 , BED IN LOWER POSITION , CALL LIGHT WITHIN REACH ,SKIN NOT INTACT , BED REST , WITH GASTRIC TUB , STILL UNDER OBSERVE
--- NOTE | 2022-10-17 07:35 | NUR ---
PT IS STABLE. ENDORSED PT TO MORNING SHIFT NURSE FOR CONTINUITY OF CARE.
[2022-10-17] MEDS: PANTOPRAZOLE 40 MG INJ VIAL IVP SCH ×2 (08:21→22:46)
[2022-10-17] MEDS: VALPROIC ACID 250 MG/5 ML UDC GT SCH ×2 (08:21→20:14)
[2022-10-17] MEDS: THIAMINE 200 MG/2 ML VIAL IV SCH ×2 (08:22→22:46)
[2022-10-17] MEDS: FINASTERIDE 5 MG TAB GT SCH (08:22)
[2022-10-17] MEDS: HALOPERIDOL 5 MG TAB GT SCH ×2 (08:22→16:15)
[2022-10-17] MEDS: LIDOCAINE 5% 1 EA PATCH TP SCH (08:30)
[2022-10-17] MEDS: ENOXAPARIN 40 MG/0.4 ML SYR SUBQ SCH (08:30)
[2022-10-17] MEDS: MORPHINE SULFATE 4 MG/ML SYR IVP PRN ×3 (08:46→22:49)
[2022-10-17] MEDS: BLOOD GLUCOSE MONITORING 1 DEV DEV MC SCH ×2 (09:37→20:14)
[2022-10-17] MEDS: THERAHONEY GEL 42.5 GM TP SCH (12:06)
[2022-10-17] MEDS: GAUZE TP SCH (12:06)
--- NOTE | 2022-10-17 13:10 | NUR ---
PATIENT LEFT THE FLOOR TO OR FOR EGD , PT STILL NPO .
--- NOTE | 2022-10-17 14:12 | NUR ---
patient was brought to operating room for EGD with stent removal under Md Partida .consent sign by the conservator
[2022-10-17] MEDS ORDERED: PROPOFOL 200 MG/20 ML VIAL IV ONE (15:14)
--- NOTE | 2022-10-17 15:56 | NUR ---
patient back from or , after stent removed successfully , no tear , dr order full liquid diet he order to keep gastric tub open at 2100 pm to drain, possible to be discharge tomorrow .
--- NOTE | 2022-10-17 19:03 | NUR ---
will endorse to slot shift supervisor rn for continuity of care . s/p EGD with removal of stent . start with clear liquid diet for 24 hr . mechanical soft after . will drain the Gastric tube till tomorrow discharge planning to [facility]
--- NOTE | 2022-10-17 19:04 | NUR ---
RECEIVED BEDSIDE REPORT FROM JUDITH GRIFFITHS FOR CONTINUITY OF CARE. PATIENT IS AWAKE AND STABLE. A&OX3. ABLE TO FOLLOW COMMANDS AND VERBALIZE NEEDS. PT C/O 4/10 TOLERABLE PAIN. ON ROOM AIR WITH NO APPARENT S/SX OF ACUTE DISTRESS. RESPIRATIONS EVEN AND UNLABORED. PATIENT IS CURRENTLY ON BEDREST. KARLOS PICC LINE PATENT/INTACT SL. POC AND WHITE COMMUNICATION BOARD UPDATED. ALL SAFETY MEASURES IN PLACE. CALL LIGHT WITHIN REACH. ENCOURAGED TO USE CALL LIGHT FOR ANY NEEDS/ASSISTANCE. BED IN LOW/LOCKED POSITION. SIDE RAILS X2 UP. WILL CONTINUE TO MONITOR.
--- NOTE | 2022-10-17 19:44 | NUR ---
PT WAS SEEN AND ASSESSED. PT ON ROOM AIR WITH SPO2 100%. HR 71 BPM. NO WHEEZING BREATH SOUNDS. PRN TX NOT INDICATED AT THIS TIME. NO RESPIRATORY DISTRESS NOTED AT THIS TIME. WILL CONTINUE TO MONITOR PT
[2022-10-17] MEDS: SENNA 8.6 MG TAB GT SCH (20:15)
--- NOTE | 2022-10-17 21:05 | NUR ---
ADMINISTERED SCHEDULED MEDICATIONS PER MD ORDER. TOLERATED WELL. PT C/O 08/31 TOLERABLE PAIN. WILL ENDORSE TO RN FOR PRN IV COVERAGE. RESPIRATIONS EVEN AND UNLABORED WITH NO APPARENT S/SX OF ACUTE DISTRESS. WHITE COMMUNICATION BOARD UPDATED. ALL SAFETY MEASURES IN PLACE. CALL LIGHT WITHIN REACH. BED IN LOW/LOCKED POSITION. WILL CONTINUE TO MONITOR.
--- NOTE | 2022-10-17 22:49 | NUR ---
PT COMPLAINTS OF RIGHT CHEST PAIN 12/01, PAIN MEDICATION MORPHINE ADMINISTERED ORDER.
--- NOTE | 2022-10-17 23:49 | NUR ---
REASSESSMENT OF PAIN, PT IS ASLEEP WITH NO FACIAL GRIMACING.
--- NOTE | 2022-10-18 01:05 | NUR ---
PROVIDED SNACKS PER PATIENT REQUEST. DENIES PAIN AT THIS TIME. RESPIRATIONS EVEN AND UNLABORED WITH NO APPARENT S/SX OF ACUTE DISTRESS. WHITE COMMUNICATION BOARD UPDATED. ALL SAFETY MEASURES IN PLACE. CALL LIGHT WITHIN REACH. BED IN LOW/LOCKED POSITION. WILL CONTINUE TO MONITOR.
--- NOTE | 2022-10-18 03:05 | NUR ---
PATIENT STABLE AND ASLEEP WITH NO FACIAL GRIMACING. FLACC=0. CHEST IS RISING AND FALLING SYMMETRICALLY. RESPIRATIONS EVEN AND UNLABORED WITH NO APPARENT S/SX OF ACUTE DISTRESS. WHITE COMMUNICATION BOARD UPDATED. ALL SAFETY MEASURES IN PLACE. CALL LIGHT WITHIN REACH. BED IN LOW/LOCKED POSITION. WILL CONTINUE TO MONITOR.
[2022-10-18 04:00] VITALS: BP 86/53; PULSE 70; RESP 17; TEMP 98; O2SAT 96
--- NOTE | 2022-10-18 05:05 | NUR ---
CHANGED DRESSING ON SACRAL COCCYX PER WOUND ORDER. TOLERATED WELL. C/O 8/10 BACK PAIN. WILL ENDORSE TO ALEX GRIFFITHS FOR IVP PRN COVERAGE PER MD ORDER. RESPIRATIONS EVEN AND UNLABORED WITH NO APPARENT S/SX OF ACUTE DISTRESS. WHITE COMMUNICATION BOARD UPDATED. ALL SAFETY MEASURES IN PLACE. CALL LIGHT WITHIN REACH. BED IN LOW/LOCKED POSITION. WILL CONTINUE TO MONITOR.
[2022-10-18] MEDS: MORPHINE SULFATE 4 MG/ML SYR IVP PRN ×3 (05:31→20:24)
--- NOTE | 2022-10-18 05:31 | NUR ---
PT COMPLAINTS OF PAIN ON RIGHT CHEST & BUTTOCK AREA, PAIN MEDICATION MORPHINE ADMINISTERED ORDER.
--- NOTE | 2022-10-18 07:00 | NUR ---
RECEIVED PT ON ROOM AIR. SATURATION 96%. NO SOB, NO DISTRESS NOTED. CALL LIGHT WITHIN REACH OF PATIENT. WILL CONTINUE TO MONITOR
--- NOTE | 2022-10-18 07:05 | NUR ---
ENDORSED PATIENT TO HUMZA JOHNSON FOR CONTINUITY OF CARE. PATIENT IS STABLE.
[2022-10-18 07:06] VITALS: O2SAT 96
--- NOTE | 2022-10-18 07:35 | NUR ---
RECEIVED REPORT FROM GOLD LEAF PRINTER NURSE FOR CONTINUITY OF CARE. PT IS AWAKE, ALERT AND ORIENTED X3. CURRENTLY ON ROOM AIR WITH NO APPARENT SIGNS OF ACUTE RESPIRATORY DISTRESS NOTED. PATIENT STATES NO PAIN AT THIS TIME. G-TUBE ATTACHED TO MORRISSEY IN PLACE. OVERALL SKIN IS INTACT. RIGHT UPPER ARM PICC LINE IN PLACE, CURRENTLY SALINE LOCK. POC DISCUSSED, WHITE BOARD UPDATED, SAFETY MEASURES IN PLACE.
[2022-10-18 08:00] VITALS: PULSE 88; RESP 18; TEMP 98.5; O2SAT 97
[2022-10-18 08:37] LABS: BASOPHILS # (AUTO) 0.1 K/uL (0.00-0.22); EOSINOPHILS # (AUTO) 0.3 K/uL (0-0.4); HEMATOCRIT 28.3 % (36-52); HEMOGLOBIN 9.2 g/dL (12.0-18.0); LYMPHOCYTES # (AUTO) 0.9 K/uL (2.0-11.5); LYMPHOCYTES % (AUTO) 18.2 % (20.5-51.1); MEAN CORPUSCULAR HEMOGLOBIN 32 pg (27-31); MEAN CORPUSCULAR HGB CONC 33 g/dL (33-37); MEAN CORPUSCULAR VOLUME 97.8 fL (80-94); MONOCYTES # (AUTO) 0.5 K/uL (0.8-1.0); MONOCYTES % (AUTO) 8.7 % (1.7-9.3); NEUTROPHILS # (AUTO) 3.4 K/uL (1.8-7.7); NEUTROPHILS % (AUTO) 66.1 % (42.2-75.2); PLATELET COUNT (AUTO) 108 K/uL (140-450); RED BLOOD CELL COUNT(AUTO) 2.89 MIL/uL (4.20-6.10); RED CELL DISTRIBUTION WIDTH 15.3 % (11.6-13.7); WHITE BLOOD COUNT (AUTO) 5.2 K/uL (4.8-10.8)
[2022-10-18] MEDS: HALOPERIDOL 5 MG TAB GT SCH ×2 (08:52→16:32)
[2022-10-18] MEDS: VALPROIC ACID 250 MG/5 ML UDC GT SCH ×2 (08:54→20:22)
[2022-10-18] MEDS: FINASTERIDE 5 MG TAB GT SCH (08:54)
[2022-10-18] MEDS: ENOXAPARIN 40 MG/0.4 ML SYR SUBQ SCH (08:55)
[2022-10-18 08:57] LABS: ANION GAP 13.8 (8-16); CARBON DIOXIDE 32.1 mmol/L (21-32); POTASSIUM 3.9 mmol/L (3.5-5.1)
[2022-10-18] MEDS: LIDOCAINE 5% 1 EA PATCH TP SCH (08:58)
[2022-10-18] MEDS: BLOOD GLUCOSE MONITORING 1 DEV DEV MC SCH ×2 (09:00→20:25)
[2022-10-18 09:01] LABS: CREATININE 7.6 mg/dL (0.6-1.3)
--- NOTE | 2022-10-18 09:13 | NUR ---
WOUND CARE RE-EVALUATION NOTE: WOUND /SKIN ASSESSMENT DONE, NO NEW SKIN BREAKS, PENDING GI PROCEDURES WILL CONTINUE SAME INTERVENTIONS. -GT JOSHUA-STOMA SKIN DRY AND CLEAN -COCCYX PRESSURE INJURY UN-STAGEABLE 3X2CM 100% PALE WHITE SLOUGH TISSUE, MOIST, NO ODOR ,JOSHUA-WOUND SKIN BLANCHABLE REDNESS AND INTACT. -RIGHT PLANTAR 2X2CM DRY STABLE SCAB -LEFT MEDIAL KNEE 1.5X1.5CM DRY STABLE SCAB -RIGHT LATERAL FOOT 4X0.8CM DRY STABLE SCAB
--- NOTE | 2022-10-18 09:20 | NUR ---
SCHEDULED MEDICATIONS ADMINISTERED, BLOOD SUGAR READING OF 85, NO COVERAGE NEEDED.
[2022-10-18] MEDS: THIAMINE 200 MG/2 ML VIAL IV SCH ×2 (10:37→20:24)
[2022-10-18] MEDS: PANTOPRAZOLE 40 MG INJ VIAL IVP SCH ×2 (10:38→20:23)
[2022-10-18 11:37] LABS: ANION GAP 10.4 (8-16); CARBON DIOXIDE 31.6 mmol/L (21-32); CREATININE 0.5 mg/dL (0.6-1.3)
--- NOTE | 2022-10-18 11:50 | NUR ---
ADMINISTERED MORPHINE FOR A PAIN LEVEL OF 9/10, PT TOLERATED WELL, WILL REASSESS PAIN LEVEL IN ONE HOUR.
[2022-10-18 12:00] VITALS: BP 107/67; PULSE 88; RESP 18; TEMP 98.3; O2SAT 97
[2022-10-18] MEDS: THERAHONEY GEL 42.5 GM TP SCH (13:00)
[2022-10-18] MEDS: GAUZE TP SCH (13:00)
[2022-10-18 13:33] LABS: BASOPHILS # (AUTO) 0.1 K/uL (0.00-0.22); EOSINOPHILS # (AUTO) 0.2 K/uL (0-0.4); EOSINOPHILS % (AUTO) 2.8 % (0.0-4.0); HEMATOCRIT 29.7 % (36-52); HEMOGLOBIN 9.6 g/dL (12.0-18.0); LYMPHOCYTES # (AUTO) 1.2 K/uL (2.0-11.5); LYMPHOCYTES % (AUTO) 23.1 % (20.5-51.1); MEAN CORPUSCULAR HEMOGLOBIN 26 pg (27-31); MEAN CORPUSCULAR HGB CONC 32 g/dL (33-37); MONOCYTES # (AUTO) 0.6 K/uL (0.8-1.0); MONOCYTES % (AUTO) 11.4 % (1.7-9.3); NEUTROPHILS # (AUTO) 3.3 K/uL (1.8-7.7); NEUTROPHILS % (AUTO) 61.7 % (42.2-75.2); PLATELET COUNT (AUTO) 289 K/uL (140-450); RED BLOOD CELL COUNT(AUTO) 3.67 MIL/uL (4.20-6.10); RED CELL DISTRIBUTION WIDTH 17.8 % (11.6-13.7); WHITE BLOOD COUNT (AUTO) 5.4 K/uL (4.8-10.8)
--- NOTE | 2022-10-18 13:50 | NUR ---
G TUBE REMOVED BY DR. HERNANDEZ. PT PUT ON FULL LIQUID DIET. WILL PROGRESS TOLERATED.
[2022-10-18] MEDS: NACL 0.45% 1,000 ML IV SCH ×2 (14:21→23:03)
[2022-10-18 17:32] LABS: APPEARANCE,URINE CLEAR (CLEAR); BILIRUBIN,URINE NEGATIVE (NEGATIVE); BLOOD, URINE NEGATIVE (NEGATIVE); COLOR,URINE YELLOW (YELLOW); LEUKOCYTE ESTERASE ,URINE NEGATIVE (NEGATIVE); NITRITE, URINE NEGATIVE (NEGATIVE); UGLUCOSE NEGATIVE (NEGATIVE)
[2022-10-18 18:51] VITALS: O2SAT 98
--- NOTE | 2022-10-18 19:30 | NUR ---
RECEIVED REPORT FROM DAY SHIFT NURSE FOR CONTINUITY OF CARE. PT IS AWAKE AND ALERT. RESTING IN BED. NOT IN ANY DISTRESS. POC DISCUSSED. CALL LIGHT WITHIN REACH. WILL CONTINUE TO MONITOR THE PT.
[2022-10-18 20:00] VITALS: BP 108/67; PULSE 60; RESP 18; TEMP 98.7; O2SAT 98
--- NOTE | 2022-10-18 20:00 | NUR ---
ENDORSED TO CASTING OPERATOR HELPER NURSE FOR CONTINUITY OF CARE. PT IS STABLE AT THIS TIME.
[2022-10-18] MEDS: SENNA 8.6 MG TAB GT SCH (20:25)
[2022-10-19] VITALS (9 sets, daily range): BP systolic 98–106; BP diastolic 62–70; PULSE 60–80; RESP 16–18; TEMP 96.7–98.2; O2SAT 97–99
[2022-10-19] MEDS: MORPHINE SULFATE 4 MG/ML SYR IVP PRN ×4 (02:44→23:07)
--- NOTE | 2022-10-19 02:44 | NUR ---
PT COMPLAINED OF SACRAL PAIN 10/31. MORPHINE WAS GIVEN PER MD ORDER. NO OTHER COMPLAINS.
[2022-10-19] MEDS: NACL 0.45% 1,000 ML IV SCH ×2 (02:50→23:16)
[2022-10-19 06:26] LABS: BASOPHILS # (AUTO) 0.1 K/uL (0.00-0.22); BASOPHILS % (AUTO) 1.3 % (0.0-2.0); EOSINOPHILS # (AUTO) 0.2 K/uL (0-0.4); EOSINOPHILS % (AUTO) 3.7 % (0.0-4.0); HEMATOCRIT 29.8 % (36-52); HEMOGLOBIN 9.7 g/dL (12.0-18.0); LYMPHOCYTES # (AUTO) 1.6 K/uL (2.0-11.5); MEAN CORPUSCULAR HEMOGLOBIN 26 pg (27-31); MEAN CORPUSCULAR HGB CONC 33 g/dL (33-37); MEAN CORPUSCULAR VOLUME 80.5 fL (80-94); MONOCYTES # (AUTO) 0.7 K/uL (0.8-1.0); NEUTROPHILS # (AUTO) 2.9 K/uL (1.8-7.7); PLATELET COUNT (AUTO) 293 K/uL (140-450); RED CELL DISTRIBUTION WIDTH 18.2 % (11.6-13.7); WHITE BLOOD COUNT (AUTO) 5.6 K/uL (4.8-10.8)
[2022-10-19 07:12] LABS: ANION GAP 7.8 (8-16); CARBON DIOXIDE 32.1 mmol/L (21-32); CREATININE 0.6 mg/dL (0.6-1.3); POTASSIUM 3.9 mmol/L (3.5-5.1)
--- NOTE | 2022-10-19 07:18 | NUR ---
ENDORSED PT TO DAY SHIFT NURSE FOR CONTINUITY OF CARE. PT IS STABLE.
--- NOTE | 2022-10-19 07:38 | NUR ---
RECEIVED PATIENT ON BED REST , AWAKE, NO SOB , STILL UNDER OBSERVE .
[2022-10-19] MEDS: LIDOCAINE 5% 1 EA PATCH TP SCH (08:04)
[2022-10-19] MEDS: VALPROIC ACID 250 MG/5 ML UDC GT SCH ×2 (08:04→21:00)
[2022-10-19] MEDS: HALOPERIDOL 5 MG TAB GT SCH ×2 (08:04→16:19)
[2022-10-19] MEDS: THIAMINE 200 MG/2 ML VIAL IV SCH ×2 (08:05→21:02)
[2022-10-19] MEDS: FINASTERIDE 5 MG TAB GT SCH (08:05)
[2022-10-19] MEDS: BLOOD GLUCOSE MONITORING 1 DEV DEV MC SCH ×2 (08:05→21:03)
[2022-10-19] MEDS: PANTOPRAZOLE 40 MG INJ VIAL IVP SCH ×2 (08:05→21:02)
[2022-10-19] MEDS: ENOXAPARIN 40 MG/0.4 ML SYR SUBQ SCH (08:07)
[2022-10-19] MEDS: FOAM DRESSING TP SCH (09:15)
--- NOTE | 2022-10-19 10:36 | NUR ---
building and grounds supervisor given hand-off for dc planning and SNF placement for this patient. Emily notes from 10-18 faxed to Meri at [facility] and to [facility] per their request. Dr. Amezcua contacted regarding timing of dc order, waiting for reply. Addendum: 10/19/22 at 1501 by Alyssa Gonzalez RN RN [facility]-no beds. [facility]-no beds. [facility]-unable to reach admissions person. [place] [facility]-unable to review request for [facility] until Friday. [facility]ing driller Megan Lux ([phone]) Addendum: 10/20/22 at 1115 by Alyssa Gonzalez RN RN Update to orders for dc to SNF. [facility] has no male beds [facility] has no beds available until next week. [place] [facility] is unable to review potential admissions until tomorrow. Vice President Of Sales again left a message for Megan Lux to ask about acceptance to [facility]. Unable to reach staff at [facility], multiple calls made. Chava Diallo will call the Vice President Of Sales when the Admitting person is available. Addendum: 10/20/22 at 1517 by Alyssa Gonzalez RN RN [facility]
[2022-10-19] MEDS ORDERED: FINA5TAB5 PO (10:39)
[2022-10-19] MEDS ORDERED: SENN-74 PO (10:39)
[2022-10-19] MEDS ORDERED: VALP-22 PO (10:39)
[2022-10-19] MEDS ORDERED: HAL5 PO (10:39)
[2022-10-19] MEDS ORDERED: LOV40I SUBQ (10:48)
--- NOTE | 2022-10-19 11:27 | NUR ---
PATIENT IN BED REST , A/OX3 , VSS , NO COMPLAIN AT THIS TIME , DRESSING ON HIS WOUND DONE PATIENT HAS DC ORDER TO [facility] , WAITING FOR CASE MANGER TO GIVE US ACCEPTANCE PT ON SNF SAFETY PROACTION ON PLACE , BED SIDE RAILS P X3 , BED IN LOWER POSITION , CALL LIGHT WITHIN REACH , SKIN HAS SACRAL WOUND , AMBULATORY WITH ASSISTANCE , ON SOFT DIET , STILL UNDER OBSERVE .
[2022-10-19] MEDS: GAUZE TP SCH (12:06)
[2022-10-19] MEDS: THERAHONEY GEL 42.5 GM TP SCH (12:08)
--- NOTE | 2022-10-19 16:33 | NUR ---
PATIENT ON BED REST , A/OX3 , VSS , NO COMPLAIN AT THIS TIME , ON SOFT DIET TOLERATED HIS FOOD , PATIENT STILL UNDER OBSERVE .
--- NOTE | 2022-10-19 19:13 | NUR ---
shift report given jenna dhillon , all his question answer .
--- NOTE | 2022-10-19 19:15 | NUR ---
RECEIVED REPORT FROM DAY SHIFT NURSE FOR CONTINUITY OF CARE. PT IS RESTING IN BED. NOT IN ANY DISTRESS. BREATHING EVEN AND UNLABORED. POC DISCUSSED. CALL LIGHT WITHIN REACH. WILL CONTINUE TO MONITOR THE PT.
[2022-10-19] MEDS: SENNA 8.6 MG TAB GT SCH (21:00)
--- NOTE | 2022-10-19 23:07 | NUR ---
PT COMPLAINED OF 8/10 PAIN IN SACRAL AREA. NO OTHER COMPLAINS. WILL CONTINUE TO MONITOR THE PT.
[2022-10-20] VITALS (10 sets, daily range): BP systolic 104–121; BP diastolic 61–73; PULSE 63–84; RESP 16–18; TEMP 97–98.3; O2SAT 95–99
--- NOTE | 2022-10-20 01:20 | NUR ---
OBSERVED PT. PT IS SLEEPING COMFORTABLY IN BED. NOT IN ANY DISTRESS. BREATHING EVEN AND UNLABORED. WILL CONTINUE TO MONITOR THE PT.
--- NOTE | 2022-10-20 07:13 | NUR ---
RECEIVED PT ON ROOM AIR. SATURATION 97%. NO SOB, NO DISTRESS NOTED. SLEEPING COMFORTABLY. CALL LIGHT WITHIN REACH OF PATIENT. WILL CONTINUE TO MONITOR.
--- NOTE | 2022-10-20 07:13 | NUR ---
ENDORSED PT TO DAY SHIFT RN FOR CONTINUITY OF CARE. PT IS STABLE.
--- NOTE | 2022-10-20 07:30 | NUR ---
RECEIVED PATIENT ON BED REST , A/OX4 , NO SOB , AWAKE ,NO COMPLAIN AT THIS REINA , STILL UNDER OBSERVE .
[2022-10-20] MEDS: PANTOPRAZOLE 40 MG INJ VIAL IVP SCH ×2 (08:00→22:04)
[2022-10-20] MEDS: VALPROIC ACID 250 MG/5 ML UDC GT SCH ×2 (08:00→22:03)
[2022-10-20] MEDS: HALOPERIDOL 5 MG TAB GT SCH ×2 (08:01→16:00)
[2022-10-20] MEDS: FINASTERIDE 5 MG TAB GT SCH (08:01)
[2022-10-20] MEDS: THIAMINE 200 MG/2 ML VIAL IV SCH ×2 (08:01→22:04)
[2022-10-20] MEDS: LIDOCAINE 5% 1 EA PATCH TP SCH (08:02)
[2022-10-20] MEDS: BLOOD GLUCOSE MONITORING 1 DEV DEV MC SCH ×2 (08:08→22:30)
[2022-10-20] MEDS: ENOXAPARIN 40 MG/0.4 ML SYR SUBQ SCH (08:08)
--- NOTE | 2022-10-20 10:51 | NUR ---
patient asking for pain Meds , his morphine , dr hemphill notified i left massage for dr if he wants to renew meds , waiting to call me back .
[2022-10-20] MEDS ORDERED: oxyCODONE/APAP 5/325 MG 1 TAB TAB PO PRN (11:15)
[2022-10-20] MEDS: oxyCODONE/APAP 5/325 MG 1 TAB TAB PO PRN ×2 (11:27→22:28)
[2022-10-20] MEDS: THERAHONEY GEL 42.5 GM TP SCH (12:38)
[2022-10-20] MEDS: GAUZE TP SCH (12:39)
--- NOTE | 2022-10-20 14:36 | NUR ---
patient awake , rest on bed , no complain at this time , still under observe .
--- NOTE | 2022-10-20 15:52 | NUR ---
PATIENT AT BED IN REST , VSS , MED SURG PATIENT , ON SOFT DIET , NO COMPLAIN AT THIS TIME SAFETY PROACTION IN PLACE , SIDE RAILS UP X2 , BED IN LOWER POSITION , CALL LIGHT WITHIN REACH DRESSING CHANGE ON HIS SACRAL WOUND , CONTINENT X2 , HAS BOWEL MOVEMENT , DISCHARGE ONGOING WAITING FOR ACCEPTANCE FOR SNF PATIENT STILL UNDER OBSERVE .
[2022-10-20] MEDS: NACL 0.45% 1,000 ML IV SCH (16:00)
--- NOTE | 2022-10-20 19:07 | NUR ---
SHIFT REPORT GIVEN TO NIGHT NURSE , ALL HER QUESTION ANSWERED .
[2022-10-20] MEDS: SENNA 8.6 MG TAB GT SCH (22:03)
--- NOTE | 2022-10-20 22:25 | NUR ---
C/O PAIN BACK PAIN NON RADIATING , HE RATES 5 - BP 122 /67 , MS 82 , RR 18 , O2 SAT 98 5 - WILL MEDICATE
--- NOTE | 2022-10-21 | NUR ---
ROUNDS , NO S/SX OF ACUTE DISTRESS NOTED , WILL CONT. TO MONITOR
[2022-10-21 04:00] VITALS: BP 114/66; PULSE 78; RESP 18; TEMP 98.6
--- NOTE | 2022-10-21 04:00 | NUR ---
ROUNDS , NO COMPLAIN MADE . CALL LIGHT WITHIN REACH .
[2022-10-21] MEDS: NACL 0.45% 1,000 ML IV SCH ×2 (04:23→17:15)
--- NOTE | 2022-10-21 06:28 | NUR ---
BS CHECK 82 - WILL GIVE SOMETHING TO EAT . WILL CONT. TO MONITOR
[2022-10-21 06:44] VITALS: O2SAT 97
--- NOTE | 2022-10-21 07:00 | NUR ---
RECEIVED PT ON ROOM AIR. SATURATION 97%. NO SOB, NO DISTRESS NOTED. CALL LIGHT WITHIN REACH OF PATIENT. WILL CONTINUE TO MONITOR.
--- NOTE | 2022-10-21 07:09 | NUR ---
receive the patient from the dental mechanic rn in [id number] admitting diagnosis of esophageal tear . will continue to monitor
[2022-10-21 07:24] VITALS: TEMP 97.1
[2022-10-21 07:26] VITALS: PULSE 86; RESP 20; O2SAT 98
--- NOTE | 2022-10-21 07:30 | NUR ---
ENDORSED PT FOR CONT. OF CARE , ENDORSE TO [facility] TO REMINF THE DOCTOR ABOUT CONT. OF IVF SINCE PT HAS DISCHARGE ORDER AND THE PT BLOOD SUGAR IS 82 , BRIAN GRIFFITHS VERBALIZES UNDERSTANDING .
[2022-10-21 08:00] VITALS: BP 117/65; PULSE 60; RESP 18; TEMP 97.4
[2022-10-21] MEDS: BLOOD GLUCOSE MONITORING 1 DEV DEV MC SCH (09:00)
[2022-10-21] MEDS: PANTOPRAZOLE 40 MG INJ VIAL IVP SCH (09:57)
[2022-10-21] MEDS: LIDOCAINE 5% 1 EA PATCH TP SCH (09:57)
[2022-10-21] MEDS: VALPROIC ACID 250 MG/5 ML UDC GT SCH (09:57)
[2022-10-21] MEDS: FINASTERIDE 5 MG TAB GT SCH (09:58)
[2022-10-21] MEDS: THIAMINE 200 MG/2 ML VIAL IV SCH (09:58)
[2022-10-21] MEDS: HALOPERIDOL 5 MG TAB GT SCH ×2 (09:59→17:14)
[2022-10-21] MEDS: THERAHONEY GEL 42.5 GM TP SCH (13:18)
[2022-10-21] MEDS: GAUZE TP SCH (13:19)
--- NOTE | 2022-10-21 13:36 | NUR ---
10/21/22 RD FOLLOW UP COMPLETED PLEASE REFER TO NUTRITION ASSESSMENT UNDER CARE ACTIVITY FOR ESTIMATED NUTRITIONAL NEEDS. 1. CONTINUE SOFT DIET TOLERATED AND ONCE MEDICALLY APPROPRIATE ADVANCE TO REGULAR DIET TOLERATED. 2. RD RECOMMENDS MAISHA BID FOR WOUND WHICH WILL PROVIDE 160 CALORIES AND 5 GRAMS OF PROTEIN. 3. RD TO FOLLOW-UP 7 DAYS, LOW RISK JOSHUA ALCOCER, RD
--- NOTE | 2022-10-21 14:27 | NUR ---
gave report to Abisai GRIFFITHS in with admitting Md Stanislaw Choudhary in rm [id number]
[2022-10-21 16:00] VITALS: BP 111/63; PULSE 59; RESP 18; TEMP 98.2
--- NOTE | 2022-10-21 18:25 | NUR ---
made discharge patient teaching . discontinue identification band . discharge with right upper arm PICC line in a stable condition to [facility]
== END 2022-10-21 18:10 | DRG 720 ==
LOC: MTU 20:10
PROVIDERS: ADMIT Student in an Organized Health Care Education/Training Program; ATTEND Student in an Organized Health Care Education/Training Program
PROC: 3E0336Z Introduction of Nutritional Substance into Peripheral Vein, Percutaneous Approach (ICD-10-PCS; 2022-10-06)
PROC: 0DP68DZ Removal of Intraluminal Device from Stomach, Via Natural or Artificial Opening Endoscopic (ICD-10-PCS; principal; 2022-10-17 14:00)
PROC: 0DP6XUZ Removal of Feeding Device from Stomach, External Approach (ICD-10-PCS; 2022-10-18)
DX: A41.9 Sepsis, unspecified organism (principal); J96.01 Acute respiratory failure with hypoxia; J15.6 Pneumonia due to other Gram-negative bacteria; T85.591A Other mechanical complication of esophageal anti-reflux device, initial encounter; E87.0 Hyperosmolality and hypernatremia; D64.9 Anemia, unspecified; F31.9 Bipolar disorder, unspecified; K44.9 Diaphragmatic hernia without obstruction or gangrene; N39.0 Urinary tract infection, site not specified; F20.9 Schizophrenia, unspecified; Y84.8 Other medical procedures as the cause of abnormal reaction of the patient, or of later complication, without mention of misadventure at the time of the procedure; Y92.89 Other specified places as the place of occurrence of the external cause; Z93.1 Gastrostomy status; Z86.718 Personal history of other venous thrombosis and embolism; Z86.711 Personal history of pulmonary embolism
CPT/HCPCS: 36415; 71045; 74220; 76770; 80048; 80076; 81003; 82465; 82948; 83735; 84100; 84300; 84478; 85025; 87081; 92610; 94640; 97110; 97112; 97116; 97163-GP; 97530; A9153; C9113; J1630; J1644; J1650; J1815; J2185; J2248; J2270; J2405; J2704; J3411; J7613; Q0092

== ENCOUNTER 2023-01-06 15:57 | Emergency (ER) | payer OTHER ==
[~2023-01-06] VITALS: Ht 188 cm; Wt 81.6 kg
[~2023-01-06 15:57] MED LIST changes: -APIX5TAB PO; -CLOZ100T PO; -DIVA125E11 PO; -DOCU50LI8 GT; -DOXY-690 PO; +FINA5TAB5 PO; +HAL5 PO; -IBUP-2213 PO; -LACT-103 PO; +LOV40I SUBQ; -PAX10 PO; -POLY17PD65 PO; +SENN-74 PO; +VALP-22 PO
[2023-01-06 15:58] VITALS: BP 125/82; PULSE 120; RESP 18; TEMP 98.9; O2SAT 99
[2023-01-06] MEDS ORDERED: NACL 0.9% 1,000 ML IV SCH (16:15)
[2023-01-06 17:06] LABS: BASOPHILS # (AUTO) 0.1 K/uL (0.00-0.22); BASOPHILS % (AUTO) 1.4 % (0.0-2.0); EOSINOPHILS # (AUTO) 0.2 K/uL (0-0.4); HEMATOCRIT 32.9 % (36-52); HEMOGLOBIN 10.5 g/dL (12.0-18.0); LYMPHOCYTES # (AUTO) 1.1 K/uL (2.0-11.5); LYMPHOCYTES % (AUTO) 14.1 % (20.5-51.1); MEAN CORPUSCULAR HEMOGLOBIN 24 pg (27-31); MEAN CORPUSCULAR HGB CONC 32 g/dL (33-37); MONOCYTES # (AUTO) 1.2 K/uL (0.8-1.0); MONOCYTES % (AUTO) 15.6 % (1.7-9.3); NEUTROPHILS % (AUTO) 65.9 % (42.2-75.2); PLATELET COUNT (AUTO) 397 K/uL (140-450); RED BLOOD CELL COUNT(AUTO) 4.45 MIL/uL (4.20-6.10); RED CELL DISTRIBUTION WIDTH 18.6 % (11.6-13.7); WHITE BLOOD COUNT (AUTO) 7.5 K/uL (4.8-10.8)
[2023-01-06 17:17] LABS: INR 1.11 (0.8-1.2); PARTIAL THROMBOPLASTIN TIME 28.3 secs (22-35.6); PROTHROMBIN TIME 11.6 secs (10.8-13.4)
[2023-01-06 17:28] LABS: ALANINE AMINOTRANSFERASE 17 U/L (12-78); ALBUMIN 3.2 g/dL (3.4-5.0); ALKALINE PHOSPHATASE 99 U/L (50-136); ASPARTATE AMINOTRANSFERASE 11 U/L (15-37); CALCIUM 9.2 mg/dL (8.5-10.1); CARBON DIOXIDE 32.3 mmol/L (21-32); CHLORIDE 105 mmol/L (98-107); CREATINE KINASE, TOTAL 108 U/L (39-308); CREATININE 0.9 mg/dL (0.6-1.3); GFR ARICAN-AMERICAN 116 mL/min (>90); GFR NON ARICAN-AMERICAN 96 mL/min (>90); GLUCOSE 109 mg/dL (74-106); POTASSIUM 3.3 mmol/L (3.5-5.1); SODIUM SERUM 142 mmol/L (136-145); TOTAL BILIRUBIN 0.3 mg/dL (0.0-1.0); TOTAL PROTEIN, SERUM 7.1 g/dL (6.4-8.2); UREA NITROGEN, BLOOD 17 mg/dL (7-18)
[2023-01-06 17:31] LABS: LACTIC ACID 1.6 mmol/L (0.4-2.0)
[2023-01-06] MEDS ORDERED: cefTRIAXone 2,000 MG in DEXTROSE 5% 100 ML IV ONE (18:25)
[2023-01-06] MEDS ORDERED: KETOROLAC 30 MG/ML VIAL IVP ONE (18:25)
[2023-01-06] MEDS ORDERED: SULF-59 PO (19:13)
[2023-01-06] MEDS ORDERED: cefTRIAXone 2,000 MG VIAL ONE ×2 (19:27→20:52)
[2023-01-06] MEDS ORDERED: KETOROLAC 30 MG/ML VIAL ONE ×2 (19:27→20:53)
[2023-01-06] MEDS ORDERED: cefTRIAXone 1,000 MG VIAL ONE (19:28)
[2023-01-06] MEDS ORDERED: ONDANSETRON 4 MG/2 ML VIAL IVP ONE (19:35)
[2023-01-06] MEDS ORDERED: ONDANSETRON 4 MG/2 ML VIAL ONE (20:53)
[2023-01-06 22:20] VITALS: BP 110/67; PULSE 98; RESP 18; TEMP 97.8; O2SAT 95
== END 2023-01-06 22:20 | disposition home or self-care (01) ==
LOC: MED 15:57
DX: M86.662 Other chronic osteomyelitis, left tibia and fibula (principal); F31.9 Bipolar disorder, unspecified; F20.9 Schizophrenia, unspecified; Z98.890 Other specified postprocedural states; Z79.899 Other long term (current) drug therapy; Z79.2 Long term (current) use of antibiotics
CPT/HCPCS: 36415; 71045; 73610; 80053; 82550; 83605; 84484; 85025; 85610; 85730; 87040; 93005; 96361; 96365; 96375; 99291; J0696; J1885; J2405; J7030; 99285

== ENCOUNTER 2023-01-07 15:20 | Emergency (ER) | payer OTHER ==
[~2023-01-07] VITALS: Ht 188 cm; Wt 81.6 kg
[~2023-01-07 15:20] MED LIST changes: +SULF-59 PO
[2023-01-07 15:39] VITALS: BP 102/67; PULSE 142; RESP 24; TEMP 98.3; O2SAT 92
[2023-01-07] MEDS ORDERED: NACL 0.9% 1,000 ML IV ONE (16:10)
[2023-01-07] MEDS ORDERED: MORPHINE SULFATE 4 MG/ML SYR IVP ONE ×2 (17:25→23:10)
[2023-01-07] MEDS ORDERED: ONDANSETRON 4 MG/2 ML VIAL IVP ONE (17:25)
[2023-01-07] MEDS ORDERED: PIPERACILLIN/TAZOBACTAM 3.375 GM in DEXTROSE 5% 50 ML IV ONE (17:30)
[2023-01-07 17:39] LABS: BASOPHILS % (AUTO) 0.2 % (0.0-2.0); HEMATOCRIT 35.6 % (36-52); HEMOGLOBIN 11.2 g/dL (12.0-18.0); LYMPHOCYTES # (AUTO) 0.7 K/uL (2.0-11.5); LYMPHOCYTES % (AUTO) 5.9 % (20.5-51.1); MEAN CORPUSCULAR HEMOGLOBIN 24 pg (27-31); MEAN CORPUSCULAR HGB CONC 32 g/dL (33-37); MEAN CORPUSCULAR VOLUME 74.8 fL (80-94); MONOCYTES # (AUTO) 2.1 K/uL (0.8-1.0); MONOCYTES % (AUTO) 17.7 % (1.7-9.3); NEUTROPHILS # (AUTO) 9.1 K/uL (1.8-7.7); NEUTROPHILS % (AUTO) 76.2 % (42.2-75.2); PLATELET COUNT (AUTO) 395 K/uL (140-450); RED BLOOD CELL COUNT(AUTO) 4.76 MIL/uL (4.20-6.10); RED CELL DISTRIBUTION WIDTH 18.6 % (11.6-13.7); WHITE BLOOD COUNT (AUTO) 11.9 K/uL (4.8-10.8)
[2023-01-07] MEDS ORDERED: PIPERACILLIN/TAZOBACTAM 3.375 GM VIAL IV ONE (17:45)
[2023-01-07 18:17] LABS: INR 1.32 (0.8-1.2); PARTIAL THROMBOPLASTIN TIME 30.2 secs (22-35.6); PROTHROMBIN TIME 13.7 secs (10.8-13.4)
[2023-01-07 18:28] LABS: ALBUMIN 2.5 g/dL (3.4-5.0); ANION GAP 11.9 (8-16); CALCIUM 8.3 mg/dL (8.5-10.1); CARBON DIOXIDE 26.2 mmol/L (21-32); CREATININE 0.9 mg/dL (0.6-1.3); POTASSIUM 4.1 mmol/L (3.5-5.1); TOTAL BILIRUBIN 0.5 mg/dL (0.0-1.0); TOTAL PROTEIN, SERUM 5.9 g/dL (6.4-8.2)
[2023-01-07 18:29] LABS: CREATINE KINASE, TOTAL 75 U/L (39-308)
[2023-01-07 18:36] LABS: LACTIC ACID 1.8 mmol/L (0.4-2.0)
[2023-01-07 19:19] LABS: BLOOD GAS BASE EXCESS -1.2 mmol/L (-2.0-2.0); BLOOD GAS HCO3 24.3 mmol/L (22-26); BLOOD GAS O2 SAT% 90.4 % (92.0-98.5); BLOOD GAS PO2 64.1 mmHg (75-100)
[2023-01-08] MEDS ORDERED: POTASSIUM CHLORIDE 10 MEQ TABER PO PRN (05:50)
[2023-01-08] MEDS ORDERED: MAGNESIUM OXIDE 400 MG TAB PO PRN (05:50)
[2023-01-08] MEDS ORDERED: MORPHINE SULFATE 2 MG/ML SYR IVP PRN ×2 (05:50→09:40)
[2023-01-08] MEDS ORDERED: MAG SULF 2000 MG/WATER PREMIX 50 ML IV PRN (05:50)
[2023-01-08] MEDS ORDERED: HYDROcodone/APAP 5/325 MG 1 TAB TAB PO PRN (05:50)
[2023-01-08] MEDS ORDERED: ACETAMINOPHEN 325 MG TAB PO PRN (05:50)
[2023-01-08] MEDS ORDERED: NACL 0.9% 1,000 ML IV SCH (05:50)
[2023-01-08] MEDS ORDERED: KCL 20 MEQ IN 100 mL PREMIX 200 ML IV PRN (05:50)
[2023-01-08] MEDS ORDERED: PIPERACILLIN/TAZOBACTAM 3.375 GM in DEXTROSE 5% 50 ML IV SCH ×2 (06:00→12:00)
[2023-01-08] MEDS ORDERED: ONDANSETRON 4 MG/2 ML VIAL IVP ONE (09:50)
[2023-01-08] MEDS ORDERED: ONDANSETRON 4 MG/2 ML VIAL ONE (09:51)
[2023-01-08] MEDS ORDERED: PIPERACILLIN/TAZOBACTAM 3.375 GM VIAL IV ONE (11:40)
[2023-01-08] MEDS ORDERED: MORPHINE SULFATE 2 MG/ML SYR IVP ONE (12:35)
[2023-01-08 13:21] VITALS: BP 120/59; PULSE 112; RESP 19; TEMP 98.3; O2SAT 98
== END 2023-01-08 13:21 | disposition short-term general hospital (02) ==
LOC: MED 15:20 → UNDOADMIN 01-08 05:54 → MTU 01-08 05:54 → MED 01-08 13:21
DX: J94.8 Other specified pleural conditions (principal); J86.9 Pyothorax without fistula; K22.89 Other specified disease of esophagus; E11.9 Type 2 diabetes mellitus without complications; F31.9 Bipolar disorder, unspecified; F20.9 Schizophrenia, unspecified; Z79.899 Other long term (current) drug therapy; Z79.2 Long term (current) use of antibiotics
CPT/HCPCS: 36415; 36600; 71045; 71260; 74177; 80053; 82550; 82803; 83605; 83880; 84484; 85025; 85610; 85730; 86886; 86900; 86901; 87040; 93005; 96361; 96365; 96366; 96375; 96376; 99291; J2270; J2405; J2543; J7030; Q9967